=== PATIENT | female | born 1970 | race Caucasian/White ===

== ENCOUNTER → 2016-03-27 | Outpatient (CLI) | payer BC ==
[~2016-03-27] MED LIST: ALPR0.25 PO; BCPILLS PO; CHIA1POW PO; CPR500 PO; FLAXPOW2 PO; HYDR-5688 PO; MRLP17X PO; SPIR25TA PO
== END | disposition home or self-care (01) ==
LOC: C.PAPS 11:16
PROVIDERS: ATTEND Obstetrics & Gynecology
DX: Z01.419 Encounter for gynecological examination (general) (routine) without abnormal findings (principal)

== ENCOUNTER → 2016-07-09 | Outpatient (CLI) | payer BC ==
--- NOTE | 2016-07-09 15:07 | MAMMOGRAPHY REPORT ---
BILATERAL DIGITAL SCREENING MAMMOGRAM TOMOSYNTHESIS WITH CAD: 07/09/2016 CLINICAL HISTORY: Routine screening. Patient has no complaints. TECHNIQUE: Breast tomosynthesis in addition to standard 2D mammography was performed. Current study was also evaluated with a Computer Aided Detection (CAD) system. COMPARISON: Comparison is made to exams dated: 08/01/2015 mammogram, 07/26/2014 mammogram, 07/20/2013 m ammogram, 07/27/2012 ultrasound, 07/27/2012 mammogram, and 07/13/2012 mammogram - [facility]. BREAST COMPOSITION: There are scattered areas of fibroglandular density in both breasts. FINDINGS: No suspicious masses, calcifications, or areas of architectural distortion are noted in e ither breast. There has been no significant interval change compared to prior exams. Scattered bilat eral benign-appearing calcifications are not significantly changed. Small benign appearing mass in the right upper outer quadrant is stable. IMPRESSION: ACR BI-RADS CATEGORY 2: BENIGN There is no mammographic evidence of malignancy. A 1 year screening mammogram is recommended. The p atient will receive written notification of the results. Approximately 10% of breast cancers are not detected with mammography. A negative mammographic repor t should not delay biopsy if a clinically suggestive mass is present. Yahaira Law M.D. ah/:07/09/2016 07:37:10 Instrument Tech: Surinder Taylor RT(R)(M), [facility] letter sent: Normal 1/2 BI-RADS Code: ACR BI-RADS Category 2: Benign
== END | disposition home or self-care (01) ==
LOC: C.MAMM 07:13
DX: Z12.31 Encounter for screening mammogram for malignant neoplasm of breast (principal)

== ENCOUNTER 2016-11-02 18:12 | Inpatient (IN) | payer BC ==
[~2016-11-02] VITALS: Ht 157.5 cm; Wt 82.4 kg
[2016-11-02 00:14] VITALS: BP 145/82; PULSE 124; TEMP 36.8; O2SAT 95
[2016-11-02] MEDS ORDERED: KETOROLAC TROMETHAMINE 30 MG/ML VIAL IV STA (20:26)
[2016-11-02] MEDS ORDERED: SODIUM CHLORIDE 0.9% 1000ML 1,000 ML IV STA ×3 (20:26→21:29)
[2016-11-02] MEDS ORDERED: ONDANSETRON INJ 2 MG/ML 2 ML VIAL IV STA (20:26)
[2016-11-02] MEDS ORDERED: MoRPHine SULFATE 4 MG/ML 1 ML CARP\\VIAL IV PRN (20:30)
--- NOTE | 2016-11-02 20:32 | EMERGENCY ROOM VISIT NOTE ---
History Report prepared by Earline: Harry Gonzalez Under the Supervision of: Kt FelicianoO. First contact with patient: 20:19 Chief Complaint: KIDNEY STONE Stated Complaint: PAINFUL URINATION, L SIDE BACK PAIN History of Present Illness The patient is a 46 year old female with a history of a kidney stone and UTIs who presents to the Emergency Room with complaints of intermittent left-sided back pain that started yesterday. She adds that she has had burning with urination for the past 2 days. The patient says that her back pain has been worsening, and she was up all night with the pain. She states that she was started on Bactrim earlier today, and Pyridium last night. The patient says that the burning sensation has subsided a bit. She denies any vomiting, fevers, hematuria, rashes, vaginal bleeding, discharge, or leg pain. The patient states that she had a kidney stone on her right side, and had a stent put in. The patient's last CT scan was in 2000. She denies any chance of , and her last period was 2 weeks ago. Source of History: patient Onset: Yesterday Position: back (left) Symptom Intensity: kept her up all night Timing: worsening, other (intermittent) Associated Symptoms: + urinary symptoms (burning sensation, denies hematuria ), No fevers, No vomiting, No rash Note: Associated symptoms: Denies vaginal bleeding, discharge, leg pain. Review of Systems See HPI for pertinent positives & negatives. A total of 10 systems reviewed and were otherwise negative. Past Medical & Surgical Medical Problems: (1) HTN (hypertension) (2) Urinary tract infection Surgical Problems: (1) Kidney stone Family History Diabetes mellitus Heart disease Hypertension Kidney disease Social History Smoking Status: Never Smoker Marital Status: Housing Status: lives with family Occupation Status: employed Current/Historical Medications Scheduled Control Pills ( Control Pills), 1 TAB PO DAILY Oj Seed (Oj Seed), 2 TSP PO DAILY Flaxseed (Linseed) (Flax Seeds), 2 TSP PO DAILY Spironolactone (Aldactone), 25 MG PO BID Scheduled PRN Alprazolam (Xanax), 0.25 MG PO BID PRN for Anxiety Allergies Coded Allergies: Sulfa Drugs (Verified Allergy, Intermediate, RASH, 04/19/09) Physical Exam Vital Signs Date Time Temp Pulse Resp B/P (MAP) Pulse Ox O2 Delivery O2 Flow Rate FiO2 11/02/16 22:26 Room Air 11/02/16 21:46 120 11/02/16 20:37 129 22 136/92 94 Room Air 11/02/16 18:38 36.9 117 18 150/84 98 Room Air Physical Exam GENERAL: Patient is awake, alert, mildly anxious appearing and uncomfortable. EYES: The conjunctivae are clear. The pupils are round and reactive. EARS, NOSE, MOUTH AND THROAT: The nose is without any evidence of any deformity. Mucous membranes are moist tongue is midline NECK: The neck is nontender and supple. RESPIRATORY: Normal respiratory effort is noted there is no evidence of wheezing rhonchi or rales CARDIOVASCULAR: Regular rate and rhythm noted there no murmurs rubs or gallops normal S1 normal S2 GASTROINTESTINAL: The abdomen is mildly distended but soft. Tenderness in left lower quadrant but no guarding or rigidity. PELVIS: The Pelvis is stable. No tenderness to palpation is noted. BACK: Left CVA tenderness to percussion. No midline tenderness noted. Range of motion appeared intact. MUSCULOSKELETAL/EXTREMITIES: There is no evidence of gross deformity full range of motion is noted in the hips and shoulders SKIN: There is no obvious evidence of any rash. There are no petechiae, pallor or cyanosis noted. NEUROLOGIC: Patient is awake alert and oriented x3 strength is symmetric patellar reflexes are 2+ bilaterally Medical Decision & Procedures ER Provider Diagnostic Interpretation: CT results as stated below per my review and radiologist interpretation. ABDOMEN AND PELVIS CT WITHOUT CONTRAST CT DOSE: 492.44 mGy.cm HISTORY: left flank pain TECHNIQUE: Multiaxial CT images of the abdomen and pelvis were performed without contrast. A dose lowering technique was utilized adhering to the principles of ALARA. COMPARISON STUDY: None. FINDINGS: Subtle groundglass density within the medial aspect of the right lower lobe and base of the lingula. No pneumoperitoneum. No pneumatosis. No suspicious lytic or blastic osseous lesions. A 2.3 cm hypodense lesion within the right hepatic lobe. This is incompletely characterize on this noncontrast study. Fatty changes within the liver. The unenhanced spleen, adrenal glands, gallbladder, and pancreas are unremarkable. No renal, ureteral, or bladder stones. There is bladder wall thickening with adjacent fat stranding. There is also mild urothelial thickening within the left renal collecting system and left ureter with adjacent periureteral fat stranding. The right ureter is within normal limits. No retroperitoneal lymphadenopathy. The uterus and bilateral adnexa are unremarkable. Suboptimal evaluation for bowel pathology due to the lack of intravenous and oral contrast. However, there is no definite bowel wall thickening or obstruction. Normal appendix. IMPRESSION: 1. Abnormal bladder wall thickening as well as mild urothelial thickening of the left renal collecting system and left ureter with adjacent fat stranding. Findings are consistent with a cystitis and left-sided pyelitis/pyelonephritis. Recommend correlation with urinalysis. Of note, a recently passed left ureteral stone could also have a similar appearance. 2. No renal or ureteral stones. 3. Hepatic steatosis. There is also a 2.3 cm indeterminate hypodense lesion within the right hepatic lobe. 4. Subtle groundglass densities within the right lower lobe and lingula. This could represent mild inflammatory/infectious change. Electronically signed by: Gera Junior M.D. 11/02/2016 9:21 PM Dictated Date/Time: 11/02/2016 9:13 PM Laboratory Results 11/02/16 20:36 Red Blood Count 4.79, Mean Corpuscular Volume 88.1, Mean Corpuscular Hemoglobin 30.1, Mean Corpuscular Hemoglobin Concent 34.1, Mean Platelet Volume 9.1, Neutrophils (%) (Auto) 84.3, Lymphocytes (%) (Auto) 8.9, Monocytes (%) (Auto) 5.6, Eosinophils (%) (Auto) 0.7, Basophils (%) (Auto) 0.1, Neutrophils # (Auto) 20.21, Lymphocytes # (Auto) 2.13, Monocytes # (Auto) 1.35, Eosinophils # (Auto) 0.17, Basophils # (Auto) 0.02 11/02/16 20:36 Test 11/02/16 20:36 White Blood Count 23.97 K/uL (4.8-10.8) Red Blood Count 4.79 M/uL (4.2-5.4) Hemoglobin 14.4 g/dL (12.0-16.0) Hematocrit 42.2 % (37-47) Mean Corpuscular Volume 88.1 fL (80-100) Mean Corpuscular Hemoglobin 30.1 pg (25-34) Mean Corpuscular Hemoglobin Concent 34.1 g/dl (32-36) Platelet Count 350 K/uL (130-400) Mean Platelet Volume 9.1 fL (7.4-10.4) Neutrophils (%) (Auto) 84.3 % Lymphocytes (%) (Auto) 8.9 % Monocytes (%) (Auto) 5.6 % Eosinophils (%) (Auto) 0.7 % Basophils (%) (Auto) 0.1 % Neutrophils # (Auto) 20.21 K/uL (1.4-6.5) Lymphocytes # (Auto) 2.13 K/uL (1.2-3.4) Monocytes # (Auto) 1.35 K/uL (0.11-0.59) Eosinophils # (Auto) 0.17 K/uL (0-0.5) Basophils # (Auto) 0.02 K/uL (0-0.2) RDW Standard Deviation 41.3 fL (36.4-46.3) RDW Coefficient of Variation 12.8 % (11.5-14.5) Immature Granulocyte % (Auto) 0.4 % Immature Granulocyte # (Auto) 0.09 K/uL (0.00-0.02) Urine Color DK YELLOW Urine Appearance TURBID (CLEAR) Urine pH 5.5 (4.5-7.5) Urine Specific Isabella 1.012 (1.000-1.030) Urine Protein 2+ (NEG) Urine Glucose (UA) NEG (NEG) Urine Ketones NEG (NEG) Urine Occult Blood 3+ (NEG) Urine Nitrite POS (NEG) Urine Bilirubin NEG (NEG) Urine Urobilinogen NEG (NEG) Urine Leukocyte Esterase LARGE (NEG) Urine WBC (Auto) >30 /hpf (0-5) Urine RBC (Auto) 10-30 /hpf (0-4) Urine Hyaline Casts (Auto) 1-5 /lpf (0-5) Urine Epithelial Cells (Auto) 5-10 /lpf (0-5) Urine Bacteria (Auto) 2+ (NEG) Anion Gap 7.0 mmol/L (3-11) Est Creatinine Clear Calc Drug Dose 85.0 ml/min Estimated GFR () 98.0 Estimated GFR (Non- 84.5 BUN/Creatinine Ratio 11.9 (10-20) Calcium Level 9.5 mg/dl (8.5-10.1) Total Bilirubin 0.5 mg/dl (0.2-1) Direct Bilirubin 0.1 mg/dl (0-0.2) Aspartate Amino Transf (AST/SGOT) 10 U/L (15-37) Alanine Aminotransferase (ALT/SGPT) 21 U/L (12-78) Alkaline Phosphatase 101 U/L (45-117) Total Protein 7.8 gm/dl (6.4-8.2) Albumin 3.8 gm/dl (3.4-5.0) Lipase 124 U/L (73-393) Human Chorionic Gonadotropin, Qual NEG (NEG) Laboratory results per my review. Medications Administered Medications (Trade) Dose Ordered Sig/Srinivasan Route Start Time Stop Time Status Last Admin Dose Admin Ketorolac Tromethamine (Toradol Inj) 30 mg NOW STAT IV 11/02/16 20:26 11/02/16 20:28 DC 11/02/16 20:42 30 MG Sodium Chloride 1,000 ml @ 999 mls/hr Q1H1M STAT IV 11/02/16 20:26 11/02/16 21:26 DC 11/02/16 20:26 999 MLS/HR Ondansetron HCl (Zofran Inj) 4 mg NOW STAT IV 11/02/16 20:26 11/02/16 20:28 DC 11/02/16 20:42 4 MG Ceftriaxone Sodium (Rocephin Inj) 1 gm NOW STAT IV 11/02/16 21:13 11/02/16 21:14 DC 11/02/16 21:41 1 GM Sodium Chloride 1,000 ml @ 999 mls/hr Q1H1M STAT IV 11/02/16 21:29 11/02/16 22:29 DC 11/02/16 21:29 999 MLS/HR ED Course 2022: The patient was evaluated in room B2. A complete history and physical examination were performed. 2025: Ordered Zofran Inj 4 mg iV, NSS 1000 ml @ 999 mls/hr IV, Toradol Inj 30 mg IV. 2029: Ordered Morphine Sulfate Inj 4 mg IV PRN. 2112: Ordered Rocephin Inj 1 gm IV. 2128: I reevaluated the patient and she is resting. The patient verbally expressed understanding and agreement with the treatment plan. The patient will be evaluated for further treatment. Ordered NSS 1000 ml @ 250 mls/hr. 2136: I discussed the patient with Dr. Mata - tilting head band sawyer [facility]. He will evaluate the patient for further treatment. Medical Decision Differential diagnosis: Etiologies such as musculoskeletal, disc herniation, fracture, aortic disease, metastatic disease, cord compression, discitis, infection, renal colic, gastrointestinal, acute exacerbation of chronic back pain, sciatica, cauda equina, as well as others were entertained. Nursing notes reviewed. The patient is a 46-year-old female who presented to emergency department for evaluation of left-sided abdominal pain. The patient has a history of kidney stone in the past. She thought this could be consistent with a kidney stone but also noted dysuria and frequency. She was started on Bactrim as an outpatient but symptoms have not improved. The patient was found have signs of elevated white blood cell count as well as signs of urinary tract infection on urinalysis. The patient was given IV fluids IV pain medicine and IV antiemetics. She was also treated with IV antibiotics. I reviewed the patient's most recent urine culture. It appears that she had a gram-negative Escherichia coli which was resistant to sulfa. This was also resistant to quinolones. Even though this was a urine from 2007 the patient may still have a similar antibiotic gram if this is an Escherichia coli urinary tract infection. For this reason she was given IV Rocephin. You may also explain the patient's symptoms did not improve despite being started on Bactrim. I discussed the patient's laboratory and radiographic studies with her. I also discussed her case with the on-call [facility] hospitalist group. They've agreed to evaluate the patient in the emergency department for further management and disposition. Medication Reconcilliation Current Medication List: was personally reviewed by me No medications on list. Blood Pressure Screening Patient's blood pressure: Elevated blood pressure Blood pressure disposition: Elevated BP felt to be situational Consults Time Called: 2132 Consulting Physician: Dr. Mata - tilting head band sawyer [facility] Returned Call: 2136 I discussed the patient with Dr. Adolfo mason tilting head band sawyer [facility]. He will evaluate the patient for further treatment. Impression Primary Impression: Pyelonephritis Additional Impressions: Elevated WBC count Abdominal pain Scribe Attestation The scribe's documentation has been prepared under my direction and personally reviewed by me in its entirety. I confirm that the note above accurately reflects all work, treatment, procedures, and medical decision making performed by me. Departure Information Dispostion Being Evaluated By Hospitalist Referrals Kwame Oliver Jr,D.O. (PCP) Patient Instructions My [facility] Problem Qualifiers Additional Impressions: Elevated WBC count Leukocytosis type: unspecified Qualified Codes: D72.829 - Elevated white blood cell count, unspecified Abdominal pain Abdominal location: left lower quadrant Qualified Codes: R10.32 - Left lower quadrant pain
[2016-11-02 20:48] LABS: HEMATOCRIT 42.2 % (37-47); MEAN CELL VOLUME 88.1 fL (80-100); MEAN CORPUSCULAR HEMOGLOBIN 30.1 pg (25-34); MEAN CORPUSCULAR HGB CONC 34.1 g/dl (32-36); MEAN PLATELET VOLUME 9.1 fL (7.4-10.4); PLATELET COUNT 350 K/uL (130-400); RED BLOOD COUNT 4.79 M/uL (4.2-5.4); WHITE BLOOD COUNT 23.97 K/uL (4.8-10.8)
[2016-11-02 21:02] LABS: URINE APPEARANCE TURBID (CLEAR); URINE BILIRUBIN NEG (NEG); URINE COLOR DK YELLOW; URINE NITRITE POS (NEG); URINE PH 5.5 (4.5-7.5); URINE SPECIFIC GRAVITY 1.012 (1.000-1.030); UROBILINOGEN NEG (NEG)
[2016-11-02 21:08] LABS: PREG INTERNAL NEGATIVE QC NEG CLEAR BACKGROUND; PREG INTERNAL POSITIVE QC POS CONTROL LINE
[2016-11-02 21:09] LABS: BASO % 0.1 %; BASO ABS # 0.02 K/uL (0-0.2); BUN/CREATININE RATIO 11.9 (10-20); CALCIUM 9.5 mg/dl (8.5-10.1); COMPLETE YES; CREATININE 0.84 mg/dl (0.60-1.20); EOS % 0.7 %; IG% 0.4 %; LYMPH % 8.9 %; LYMPH ABS # 2.13 K/uL (1.2-3.4); MANUAL MICROSCOPIC REQUIRED? NO; MONO % 5.6 %; NEUT % 84.3 %; POTASSIUM 3.9 mmol/L (3.5-5.1); REVIEW REQ? NO
[2016-11-02] MEDS ORDERED: CEFTRIAXONE SOD INJ 1 GM ADDVIAL IV STA (21:13)
--- NOTE | 2016-11-02 21:23 | DIAGNOSTIC IMAGING REPORT ---
ABDOMEN AND PELVIS CT WITHOUT CONTRAST CT DOSE: 492.44 mGy.cm HISTORY: left flank pain TECHNIQUE: Multiaxial CT images of the abdomen and pelvis were performed without contrast. A dose lowering technique was utilized adhering to the principles of ALARA. COMPARISON STUDY: None. FINDINGS: Subtle groundglass density within the medial aspect of the right lower lobe and base of the lingula. No pneumoperitoneum. No pneumatosis. No suspicious lytic or blastic osseous lesions. A 2.3 cm hypodense lesion within the right hepatic lobe. This is incompletely characterize on this noncontrast study. Fatty changes within the liver. The unenhanced spleen, adrenal glands, gallbladder, and pancreas are unremarkable. No renal, ureteral, or bladder stones. There is bladder wall thickening with adjacent fat stranding. There is also mild urothelial thickening within the left renal collecting system and left ureter with adjacent periureteral fat stranding. The right ureter is within normal limits. No retroperitoneal lymphadenopathy. The uterus and bilateral adnexa are unremarkable. Suboptimal evaluation for bowel pathology due to the lack of intravenous and oral contrast. However, there is no definite bowel wall thickening or obstruction. Normal appendix. IMPRESSION: 1. Abnormal bladder wall thickening as well as mild urothelial thickening of the left renal collecting system and left ureter with adjacent fat stranding. Findings are consistent with a cystitis and left-sided pyelitis/pyelonephritis. Recommend correlation with urinalysis. Of note, a recently passed left ureteral stone could also have a similar appearance. 2. No renal or ureteral stones. 3. Hepatic steatosis. There is also a 2.3 cm indeterminate hypodense lesion within the right hepatic lobe. 4. Subtle groundglass densities within the right lower lobe and lingula. This could represent mild inflammatory/infectious change. Electronically signed by: Gera Junior M.D. 11/02/2016 9:21 PM Dictated Date/Time: 11/02/2016 9:13 PM
[2016-11-02] MEDS ORDERED: SPIR25TA PO (22:11)
[2016-11-02] MEDS ORDERED: BCPILLS PO (22:11)
[2016-11-02] MEDS ORDERED: ALPR0.25 PO (22:12)
[2016-11-02] MEDS ORDERED: FLAXPOW2 PO (22:14)
[2016-11-02] MEDS ORDERED: CHIA1POW PO (22:14)
[2016-11-02 22:26] VITALS: Ht 157.5 cm; Wt 82.4 kg
[2016-11-02] MEDS ORDERED: ACETAMINOPHEN 325 MG TAB PO PRN (23:00)
[2016-11-02] MEDS ORDERED: ONDANSETRON INJ 2 MG/ML 2 ML VIAL IV PRN (23:00)
[2016-11-02] MEDS ORDERED: MAGNESIUM HYDROXIDE SUSP 30 ML UDC PO PRN (23:00)
[2016-11-02] MEDS ORDERED: ALUMINUM/MAGNESIUM/SIMETH (MAALOX MAX) 30 ML UDC PO PRN (23:00)
[2016-11-02] MEDS ORDERED: POLYETHYLENE (MIRALAX) 17 GM PACK PO PRN (23:00)
--- NOTE | 2016-11-02 23:06 | History and Physical ---
History & Physical Date & Time of Service: Nov 02, 2016 at 22:52 Chief Complaint: Painful Urination, L Side Back Pain Primary Care Physician: Kwame Oliver Jr, D.O. History of Present Illness Source: patient The patient presents with "bladder burning" for the past 2-3 days. She also complains of left mid back pain. Kept her awake all night. Advil did help. She describes it as an aching pain 8/10, but now it has improved to 1/10. She felt the pain radiated down into the lower back. She continues to have some dysuria. Took 3 doses of Pyridium prior to arrival which did help. She was prescribed Bactrim yesterday at urgent care but has not had any relief yet. Went to work this morning and went to [employer] this afternoon symptom free. Later in the day she felt that the pain was coming back and feeling much worse than previous. Notes history of renal stone on the right side previously, and she had ureteroscopy and stenting in 2000. The pain now was reminiscent of that so she came to the ED for further evaluation. She notes a history of urethral dilatation as a child. She states otherwise, she has only 1 other UTI > 10 years ago. She denies fevers but feels hot. No chills or nightsweats. Appetite has been slightly diminished. She denies nausea, vomiting, diarrhea or constipation. She states that she has been fairly diligent at pushing PO fluids. The patient denies any chest pain, shortness of breath, pleuritic pain. She denies any calf pain or swelling. She has not had recent immobilization or travel. 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) Immunizations History of Influenza Vaccine: Unknown History of Tetanus Vaccine?: Unknown History of Pneumococcal: No History of Hepatitis B Vaccine: Unknown Multi-Drug Resistant Organisms History of MDRO: No Allergies Coded Allergies: Sulfa Drugs (Verified Allergy, Intermediate, RASH, 2/5/10) Home Medications Scheduled Control Pills ( Control Pills), 1 TAB PO DAILY Oj Seed (Oj Seed), 2 TSP PO DAILY Flaxseed (Linseed) (Flax Seeds), 2 TSP PO DAILY Spironolactone (Aldactone), 25 MG PO BID Scheduled PRN Alprazolam (Xanax), 0.25 MG PO BID PRN for Anxiety Review of Systems A 10 point review of systems was negative unless stated above. Physical Exam Vital Signs Date Time Temp Pulse Resp B/P (MAP) Pulse Ox O2 Delivery O2 Flow Rate FiO2 11/02/16 22:26 Room Air 11/02/16 21:46 120 11/02/16 20:37 129 22 136/92 94 Room Air 11/02/16 18:38 36.9 117 18 150/84 98 Room Air General Appearance: WD/WN, no apparent distress Head: normocephalic, atraumatic Eyes: normal inspection, EOMI ENT: hearing grossly normal, pharynx normal Neck: supple, no adenopathy, no JVD Respiratory/Chest: chest non-tender, no respiratory distress, no accessory muscle use, + pertinent finding (mild crackles at right base) Cardiovascular: regular rate, rhythm, no gallop, no murmur, + tachycardia Abdomen/GI: normal bowel sounds, non tender, soft Back: no muscle spasm, + left CVA tenderness Extremities/Musculoskelatal: no calf tenderness, no pedal edema Neurologic/Psych: alert, normal mood/affect, oriented x 3 Skin: normal color, warm/dry, no rash Lymphatic: no adenopathy Diagnostics Laboratory Results Results Past 24 Hours Test 11/02/16 20:36 Range/Units White Blood Count 23.97 4.8-10.8 K/uL Red Blood Count 4.79 4.2-5.4 M/uL Hemoglobin 14.4 12.0-16.0 g/dL Hematocrit 42.2 37-47 % Mean Corpuscular Volume 88.1 80-100 fL Mean Corpuscular Hemoglobin 30.1 25-34 pg Mean Corpuscular Hemoglobin Concent 34.1 32-36 g/dl Platelet Count 350 130-400 K/uL Mean Platelet Volume 9.1 7.4-10.4 fL Neutrophils (%) (Auto) 84.3 % Lymphocytes (%) (Auto) 8.9 % Monocytes (%) (Auto) 5.6 % Eosinophils (%) (Auto) 0.7 % Basophils (%) (Auto) 0.1 % Neutrophils # (Auto) 20.21 1.4-6.5 K/uL Lymphocytes # (Auto) 2.13 1.2-3.4 K/uL Monocytes # (Auto) 1.35 0.11-0.59 K/uL Eosinophils # (Auto) 0.17 0-0.5 K/uL Basophils # (Auto) 0.02 0-0.2 K/uL RDW Standard Deviation 41.3 36.4-46.3 fL RDW Coefficient of Variation 12.8 11.5-14.5 % Immature Granulocyte % (Auto) 0.4 % Immature Granulocyte # (Auto) 0.09 0.00-0.02 K/uL Urine Color DK YELLOW Urine Appearance TURBID CLEAR Urine pH 5.5 4.5-7.5 Urine Specific [place] 1.012 1.000-1.030 Urine Protein 2+ NEG Urine Glucose (UA) NEG NEG Urine Ketones NEG NEG Urine Occult Blood 3+ NEG Urine Nitrite POS NEG Urine Bilirubin NEG NEG Urine Urobilinogen NEG NEG Urine Leukocyte Esterase LARGE NEG Urine WBC (Auto) >30 0-5 /hpf Urine RBC (Auto) 10-30 0-4 /hpf Urine Hyaline Casts (Auto) 1-5 0-5 /lpf Urine Epithelial Cells (Auto) 5-10 0-5 /lpf Urine Bacteria (Auto) 2+ NEG Sodium Level 136 136-145 mmol/L Potassium Level 3.9 3.5-5.1 mmol/L Chloride Level 102 98-107 mmol/L Carbon Dioxide Level 27 21-32 mmol/L Anion Gap 7.0 3-11 mmol/L Blood Urea Nitrogen 10 7-18 mg/dl Creatinine 0.84 0.60-1.20 mg/dl Est Creatinine Clear Calc Drug Dose 85.0 ml/min Estimated GFR () 98.0 Estimated GFR (Non- 84.5 BUN/Creatinine Ratio 11.9 10-20 Random Glucose 107 70-99 mg/dl Calcium Level 9.5 8.5-10.1 mg/dl Total Bilirubin 0.5 0.2-1 mg/dl Direct Bilirubin 0.1 0-0.2 mg/dl Aspartate Amino Transf (AST/SGOT) 10 15-37 U/L Alanine Aminotransferase (ALT/SGPT) 21 12-78 U/L Alkaline Phosphatase 101 45-117 U/L Total Protein 7.8 6.4-8.2 gm/dl Albumin 3.8 3.4-5.0 gm/dl Lipase 124 73-393 U/L Human Chorionic Gonadotropin, Qual NEG NEG Microbiology Results 11/02/16 Urine Culture, Received Pending Diagnostic Radiology [~ rep ct add3]] ABDOMEN AND PELVIS CT WITHOUT CONTRAST CT DOSE: 492.44 mGy.cm HISTORY: left flank pain TECHNIQUE: Multiaxial CT images of the abdomen and pelvis were performed without contrast. A dose lowering technique was utilized adhering to the principles of ALARA. COMPARISON STUDY: None. FINDINGS: Subtle groundglass density within the medial aspect of the right lower lobe and base of the lingula. No pneumoperitoneum. No pneumatosis. No suspicious lytic or blastic osseous lesions. A 2.3 cm hypodense lesion within the right hepatic lobe. This is incompletely characterize on this noncontrast study. Fatty changes within the liver. The unenhanced spleen, adrenal glands, gallbladder, and pancreas are unremarkable. No renal, ureteral, or bladder stones. There is bladder wall thickening with adjacent fat stranding. There is also mild urothelial thickening within the left renal collecting system and left ureter with adjacent periureteral fat stranding. The right ureter is within normal limits. No retroperitoneal lymphadenopathy. The uterus and bilateral adnexa are unremarkable. Suboptimal evaluation for bowel pathology due to the lack of intravenous and oral contrast. However, there is no definite bowel wall thickening or obstruction. Normal appendix. IMPRESSION: 1. Abnormal bladder wall thickening as well as mild urothelial thickening of the left renal collecting system and left ureter with adjacent fat stranding. Findings are consistent with a cystitis and left-sided pyelitis/pyelonephritis. Recommend correlation with urinalysis. Of note, a recently passed left ureteral stone could also have a similar appearance. 2. No renal or ureteral stones. 3. Hepatic steatosis. There is also a 2.3 cm indeterminate hypodense lesion within the right hepatic lobe. 4. Subtle groundglass densities within the right lower lobe and lingula. This could represent mild inflammatory/infectious change. Electronically signed by: Gera Junior M.D. 11/02/2016 9:21 PM Dictated Date/Time: 11/02/2016 9:13 PM The status of this report is Signed. Draft = Not yet reviewed or approved by Radiologist. Signed = Reviewed and approved by Radiologist. Impression Assessment and Plan 46 year old female presenting with dysuria and left back pain. UA in conjunction with CT is suggestive of cystitis/left sided pyelonephritis At the time of admission, she has gotten 2 L of fluids and is currently having her third litre running wide open and remains tacchycardic. Our plan for her is as follows: Cystitis/Left Pyelonephritis - Rocephin 1 g IV daily - IV rehydration Tachycardia - After 2 L NSS and 3rd Litre running now - Unusual given that patient has been stating reasonable hydration status over the past several days and appears hydrated - Will order EKG to rule-out SVT - Will order CT for PE (patient does have risk factor of being on OCP Hepatic Lobe Lesion - Incidental finding on CT - Will require follow-up characterization, which is non-urgent Hypertension - Continue Spironolactone DVT Prophylaxis - SCD - NADER - Lovenox 40 mg qAM Disposition - Med/Surg - Lives independently, PT and OT needs not anticipated at this time Attending Addendum: I have physically seen and examined this patient, have supervised the medical residents activities, and agree with the H&P as noted above with the following exceptions as noted. The patient denies chest pain, palpitations, shortness of breath, cough, lower extremity swelling, vision change, hearing change, sore throat, fevers, chills, sweats, weight change, fatigue, nausea, vomiting, blood in urine or stool, lightheadedness, dizziness, headache, memory loss, rash, abnormal bruising or bleeding, imbalance, focal or generalized weakness, numbness or tingling in arms or legs, generalized arthralgias or myalgias, night sweats, or allergy symptoms. The review of systems is otherwise negative other than for that already noted above, and at least 10 systems have been reviewed. The patient is awake, well-developed and adequately nourished, alert and oriented 3, normocephalic and atraumatic, lying in bed and in no acute distress. HEENT--PERRL, EOMI, mucous membranes and oropharynx dry. Neck--supple, no JVD or bruits, thyroid normal, trachea midline, no adenopathy. Heart--normal S1 and S2, no extra beats, no murmurs, rubs or gallops. Lungs--clear bilaterally with good air movement, no respiratory distress, no accessory muscle use. Abdomen--normal bowel sounds and soft, nontender and nondistended, no hernias or masses, no organomegaly. No pain post medications Extremities--no cyanosis, clubbing or edema. There are good distal pulses b/l. Dermatologic--normal skin turgor, normal color, warm and dry, no abnormal lymph nodes, no rash. Neurologic--cranial nerves II through XII grossly intact. Rheumatologic--normal range of motion, nontender, muscles and joints. Psychiatric--normal affect. Assessment and Plan: 1. Cystitis/left sided pyelonephritis--ceftriaxone 1 g IV daily, IV fluid rehydration, follow urine culture and sensitivity results. 2. Tachycardia--she has had persistent increased heart rate in the 125 to 130 range in spite of aggressive IV fluid rehydration up to 3 L at this time. We'll order a CT angiography assess her possible pulmonary embolism. If the CT is negative, continue IV fluid rehydration. 3. Nonspecific right hepatic lobe lesion 2.3 cm--she should have a follow-up MRI to further assess. Level of Care Med/Surg Advanced Directives Existing Advance Directive: No Existing Living Will: No Existing Power of Container Finisher: No Resuscitation Status FULL RESUSCITATION VTE Prophylaxis VTE Risk Assessment Done? Y/N: Yes Risk Level: Moderate Given or contraindicated: Enoxaparin (Lovenox)SQ Social Service Consult None Apply
[2016-11-02] MEDS ORDERED: OPTIRAY 320 IV PRN (23:30)
[2016-11-03] MEDS: AZITHROMYCIN IV 500 MG in DEXTROSE 5% 250ML 250 ML IV SCH ×2 (00:41→23:30)
[2016-11-03] MEDS: NSS + 20MEQ KCL 1000ML 1,000 ML IV SCH ×4 (00:41→23:30)
[2016-11-03 02:19] VITALS: PULSE 102
[2016-11-03 07:11] LABS: PROTHROMBIN TIME (PATIENT) 10.3 SECONDS (9.0-12.0)
[2016-11-03 07:19] LABS: BASO % 0.2 %; BASO ABS # 0.02 K/uL (0-0.2); COMPLETE YES; EOS % 2.5 %; HEMATOCRIT 34.1 % (37-47); IG% 0.2 %; LYMPH % 19.4 %; LYMPH ABS # 2.14 K/uL (1.2-3.4); MEAN CELL VOLUME 88.3 fL (80-100); MEAN CORPUSCULAR HEMOGLOBIN 30.6 pg (25-34); MEAN CORPUSCULAR HGB CONC 34.6 g/dl (32-36); MEAN PLATELET VOLUME 8.9 fL (7.4-10.4); MONO % 9.5 %; NEUT % 68.2 %; PLATELET COUNT 235 K/uL (130-400); RED BLOOD COUNT 3.86 M/uL (4.2-5.4); WHITE BLOOD COUNT 11.03 K/uL (4.8-10.8)
[2016-11-03 07:20] VITALS: BP 132/81; PULSE 97; TEMP 36.5; O2SAT 95
--- NOTE | 2016-11-03 07:26 | DIAGNOSTIC IMAGING REPORT ---
CT ANGIOGRAM OF THE CHEST CLINICAL HISTORY: Tachycardia. COMPARISON STUDY: No priors. TECHNIQUE: Following the IV administration of 75 cc of Optiray 320, CT angiogram of the chest was performed from the upper abdomen to the thoracic inlet utilizing the pulmonary embolus protocol. Images are reviewed in the axial, sagittal, and coronal planes. 3-D MIPS images are created and assessed. IV contrast was administered without complication. A dose lowering technique was utilized adhering to the principles of ALARA. CT DOSE: 397.44 mGy.cm FINDINGS: Thyroid: Imaged portions of the thyroid gland are normal in size and attenuation. Subcentimeter thyroid nodules are noted. Thoracic aorta: The thoracic aorta is normal in caliber and demonstrates bovine variant arch anatomy. No dissection is seen. Pulmonary vasculature: The pulmonary trunk is normal in caliber. There are no filling defects identified in main, lobar, or segmental pulmonary branches to suggest pulmonary embolus. Heart: The heart is normal in size and configuration, and without pericardial effusion. Lungs and pleural spaces: The lungs and pleural spaces are clear. Mediastinum: There is no mediastinal lymphadenopathy. [place]: Clear. Axillae: There is no axillary lymphadenopathy. Upper abdomen: The liver is steatotic. There is a 2.3 cm indeterminant low-attenuation lesion in segment VII seen on image #44. Skeletal structures: No lytic or blastic bony lesions are seen. IMPRESSION: 1. There is no evidence of pulmonary embolus in the main, lobar, or segmental pulmonary arteries. 2. The lungs are clear. 3. Hepatic steatosis. 4. There is an indeterminant 2.3 cm low-attenuation lesion in the right hepatic lobe. In the absence of a cancer history this likely represents a benign hemangioma. This could be confirmed with a nonemergent/outpatient contrast-enhanced MRI of the liver if clinically warranted. 5. Subcentimeter thyroid nodules are identified. Follow-up with a nonemergent thyroid ultrasound is recommended. Electronically signed by: Ismael Aguirre M.D. 11/03/2016 7:25 AM Dictated Date/Time: 11/03/2016 7:20 AM
[2016-11-03 07:39] LABS: BUN/CREATININE RATIO 9.1 (10-20); CALCIUM 7.7 mg/dl (8.5-10.1); CREATININE 0.65 mg/dl (0.60-1.20); POTASSIUM 3.9 mmol/L (3.5-5.1)
[2016-11-03 08:00] VITALS: O2SAT 95
[2016-11-03] MEDS: SPIRONOLACTONE 25 MG TAB PO SCH ×2 (08:27→16:10)
[2016-11-03] MEDS: ENOXAPARIN 40 MG/0.4 ML SYR SQ SCH (08:28)
--- NOTE | 2016-11-03 08:48 | Hospitalist Progress Note ---
Hospitalist Progress Note Date of Service Nov 03, 2016. (Katharina Aragon PA-C) Subjective Pt evaluation today including: conversation w/ patient, conversation w/ family , physical exam, chart review, lab review, review of studies Pain: None PO Intake: Good Voiding: no voiding problems The patient was seen and examined this morning. Pt reports feeling much better. She is still having some left sided flank pain that waxes and wanes, rated 4/ 10. She has only taken toradol x 1 last evening, and has not required any other pain meds. She denies any abdominal pain, nausea, or vomiting. Her and sister are present, all their questions and concerns were answered. Constitutional: No fever, No chills, No sweats Eyes: No redness, No diplopia ENT: No nasal symptoms, No trouble swallowing Respiratory: No cough, No shortness of breath Cardiovascular: No chest pain, No palpitations Abdomen: No pain, No nausea, No vomiting, No diarrhea, No constipation Musculoskeletal: No joint pain, No muscle pain Skin: No rash, No itch (Katharina Aragon PA-C) Objective Vital Signs Date Time Temp Pulse Resp B/P (MAP) Pulse Ox O2 Delivery O2 Flow Rate FiO2 11/03/16 07:20 36.5 97 20 132/81 (98) 95 Room Air 11/03/16 02:19 102 11/02/16 23:41 115 22 138/81 99 11/02/16 22:30 124 26 145/89 99 Room Air 11/02/16 22:26 Room Air 11/02/16 21:46 120 11/02/16 20:37 129 22 136/92 94 Room Air 11/02/16 18:38 36.9 117 18 150/84 98 Room Air (Katharina Aragon PA-C) Physical Exam General Appearance: WD/WN, no apparent distress, + obese Eyes: PERRL, EOMI ENT: hearing grossly normal, pharynx normal Neck: supple, no JVD Respiratory/Chest: lungs clear, no respiratory distress, no accessory muscle use Cardiovascular: regular rate, rhythm, no murmur Abdomen: normal bowel sounds, non tender, soft Extremities: non-tender, no pedal edema, no calf tenderness Neurologic/Psychiatric: alert, normal mood/affect, oriented x 3 Skin: normal color, warm/dry (Katharina Aragon, HERON) Laboratory Results Last 24 Hours Test 11/02/16 20:36 11/03/16 06:35 White Blood Count 23.97 K/uL 11.03 K/uL Red Blood Count 4.79 M/uL 3.86 M/uL Hemoglobin 14.4 g/dL 11.8 g/dL Hematocrit 42.2 % 34.1 % Mean Corpuscular Volume 88.1 fL 88.3 fL Mean Corpuscular Hemoglobin 30.1 pg 30.6 pg Mean Corpuscular Hemoglobin Concent 34.1 g/dl 34.6 g/dl Platelet Count 350 K/uL 235 K/uL Mean Platelet Volume 9.1 fL 8.9 fL Neutrophils (%) (Auto) 84.3 % 68.2 % Lymphocytes (%) (Auto) 8.9 % 19.4 % Monocytes (%) (Auto) 5.6 % 9.5 % Eosinophils (%) (Auto) 0.7 % 2.5 % Basophils (%) (Auto) 0.1 % 0.2 % Neutrophils # (Auto) 20.21 K/uL 7.52 K/uL Lymphocytes # (Auto) 2.13 K/uL 2.14 K/uL Monocytes # (Auto) 1.35 K/uL 1.05 K/uL Eosinophils # (Auto) 0.17 K/uL 0.28 K/uL Basophils # (Auto) 0.02 K/uL 0.02 K/uL RDW Standard Deviation 41.3 fL 41.5 fL RDW Coefficient of Variation 12.8 % 12.9 % Immature Granulocyte % (Auto) 0.4 % 0.2 % Immature Granulocyte # (Auto) 0.09 K/uL 0.02 K/uL Urine Color DK YELLOW Urine Appearance TURBID Urine pH 5.5 Urine Specific [place] 1.012 Urine Protein 2+ Urine Glucose (UA) NEG Urine Ketones NEG Urine Occult Blood 3+ Urine Nitrite POS Urine Bilirubin NEG Urine Urobilinogen NEG Urine Leukocyte Esterase LARGE Urine WBC (Auto) >30 /hpf Urine RBC (Auto) 10-30 /hpf Urine Hyaline Casts (Auto) 1-5 /lpf Urine Epithelial Cells (Auto) 5-10 /lpf Urine Bacteria (Auto) 2+ Sodium Level 136 mmol/L 141 mmol/L Potassium Level 3.9 mmol/L 3.9 mmol/L Chloride Level 102 mmol/L 111 mmol/L Carbon Dioxide Level 27 mmol/L 24 mmol/L Anion Gap 7.0 mmol/L 6.0 mmol/L Blood Urea Nitrogen 10 mg/dl 6 mg/dl Creatinine 0.84 mg/dl 0.65 mg/dl Est Creatinine Clear Calc Drug Dose 85.0 ml/min 109.9 ml/min Estimated GFR () 98.0 125.1 Estimated GFR (Non- 84.5 108.0 BUN/Creatinine Ratio 11.9 9.1 Random Glucose 107 mg/dl 84 mg/dl Calcium Level 9.5 mg/dl 7.7 mg/dl Total Bilirubin 0.5 mg/dl Direct Bilirubin 0.1 mg/dl Aspartate Amino Transf (AST/SGOT) 10 U/L Alanine Aminotransferase (ALT/SGPT) 21 U/L Alkaline Phosphatase 101 U/L Total Protein 7.8 gm/dl Albumin 3.8 gm/dl Lipase 124 U/L Human Chorionic Gonadotropin, Qual NEG Prothrombin Time 10.3 SECONDS Prothromb Time International Ratio 1.0 (Katharina Aragon, PA-C) Assessment and Plan 46 year old female presenting with dysuria and left back pain. UA in conjunction with CT is suggestive of cystitis/left sided pyelonephritis Cystitis/Left Pyelonephritis - Rocephin 1 g IV daily- leukocytosis is improving from 24 down to 11.8 - IV rehydration - Await UCx sensitivities Tachycardia - Got 3 L NSS overnight and is on maintenance fluids at this time. - Pt was tachycardic this morning, but improved during my examination late this morning to being regular with HR around 80. - EKG appears WNL - CTA negative for PE Hepatic Lobe Lesion - Incidental finding on CT - Will require follow-up characterization, which is non-urgent Hypertension - Continue Spironolactone DVT Prophylaxis: SCD, NADER, Lovenox 40 mg qAM Disposition: Lives independently, PT and OT needs not anticipated at this time , likely discharge tomorrow pending cx (Katharina Aragon, PA-C) I agree with PA assessment and plan and have seen and examined pt myself Resting comfortably in bed VSS Labs reviewed and leukocytosis improved Imaging reviewed Pt presents with pyelonephritis Cont with rocephin at this time Likely DC in next 24 hrs (Ez Saravia D.O.)
[2016-11-03 14:58] VITALS: BP 113/75; PULSE 92; TEMP 36.5; O2SAT 98
[2016-11-03] MEDS ORDERED: CEFTRIAXONE SOD INJ 1 GM in DEXTROSE 5% ADD-VANTAGE 50ML 50 ML IV SCH (21:00)
[2016-11-03] MEDS ORDERED: KETOROLAC TROMETHAMINE 30 MG/ML VIAL IV STA (21:50)
[2016-11-03 22:54] VITALS: BP 104/64; PULSE 80; TEMP 36.6; O2SAT 98
[2016-11-04 07:21] VITALS: BP 134/83; PULSE 88; TEMP 36.8; O2SAT 96
[2016-11-04] MEDS ORDERED: CPR500 PO ×2 (08:14→08:22)
--- NOTE | 2016-11-04 08:21 | Discharge Instructions ---
Discharge Instructions Date of Service Nov 04, 2016. Admission Reason for Admission: Urinary Tract Infection Discharge Discharge Diagnosis / Problem: Pyelonephrosis, e.coli Urinary tract infection Discharge Goals Goal(s): Decrease discomfort, Improve function, Increase independence, Improve disease control Activity Recommendations Activity Limitations: resume your previous activity Lifting Limitations: gradually increase as tolerated Exercise/Sports Limitations: none, gradually increase as tolerated May Resume Sexual Activity: when tolerated Shower/Bathe: no limitations Driving or Machine Use: no limitations . Instructions / Follow-Up Instructions / Follow-Up You were admitted to [facility] with severe left sided flank pain and diagnosed with pyelonephritis and a urinary tract infection where your cultures grew out e. coli. During your stay here you were treated with intravenous antibiotics, pain control and fluids. Your symptoms resolved. Imaging studies which were completed include CT of the abdomen/pelvis, and were abnormal showing pyelonephritis. Medications: Continue taking antibiotic- ciprofloxacin 500 mg twice daily for 8 more days to complete a 10 day course. You have been given Sarver 5/325 for severe pain. Use this every 6 hours as needed. If your pain does not resolve or worsens, call your PCP or come to the ER. Use mirilax to help keep your bowels regular, especially while using Sarver for pain, as this is a narcotic medication and can cause constipation. Eat a yogurt once daily to help proliferate good bacteria in the gut while taking an antibiotic. Follow up: Follow up with your Primary Care Provider within 1 week. Current Hospital Diet Patient's current hospital diet: Regular Diet Discharge Diet Recommended Diet: Regular Diet Pending Studies Studies pending at discharge: no Medical Emergencies . Who to Call and When: Medical Emergencies: If at any time you feel your situation is an emergency, please call 911 immediately. . Non-Emergent Contact Non-Emergency issues call your: Primary Care Provider, Marketing Content Specialist Call Non-Emergent contact if: you have a fever, temperature is above 100.5, your pain is not controlled, your pain is worsening, your pain is unusual for you, your pain is concerning you, you have any medication questions Call 911 or go directly to the ER if you experience chest pain, shortness of breath, abdominal pain, lightheadedness, dizziness or have other concerns regarding your health. . Past History Medical & Surgical History: (1) Pyelonephritis (2) Urinary tract infection (3) Elevated WBC count . "Provider Documentation" section prepared by Tonie Aragon. . VTE Core Measure Inpt VTE Proph given/why not?: Enoxaparin (Lovenox)SQ, T.E.D. Stockings, SCD's
[2016-11-04 08:23] LABS: BASO % 0.2 %; BASO ABS # 0.02 K/uL (0-0.2); COMPLETE YES; EOS % 6.4 %; HEMATOCRIT 38.3 % (37-47); IG% 0.1 %; LYMPH % 20.6 %; LYMPH ABS # 1.71 K/uL (1.2-3.4); MEAN CELL VOLUME 89.1 fL (80-100); MEAN CORPUSCULAR HEMOGLOBIN 29.1 pg (25-34); MEAN CORPUSCULAR HGB CONC 32.6 g/dl (32-36); MEAN PLATELET VOLUME 8.6 fL (7.4-10.4); MONO % 7.6 %; NEUT % 65.1 %; PLATELET COUNT 241 K/uL (130-400)
[2016-11-04] MEDS: SPIRONOLACTONE 25 MG TAB PO SCH (08:48)
[2016-11-04] MEDS: ENOXAPARIN 40 MG/0.4 ML SYR SQ SCH (08:49)
[2016-11-04] MEDS: NSS + 20MEQ KCL 1000ML 1,000 ML IV SCH (08:51)
[2016-11-04] MEDS ORDERED: HYDROCODONE/ACETAMOPHEN 5/325MG TAB PO PRN (09:15)
[2016-11-04] MEDS ORDERED: BISACODYL 10 MG SUPP PR STA (09:36)
[2016-11-04] MEDS ORDERED: HYDR-5688 PO (09:38)
[2016-11-04] MEDS ORDERED: MRLP17X PO (09:38)
[2016-11-04] MEDS ORDERED: CIPROFLOXACIN 500 MG TAB PO SCH (10:00)
[2016-11-04 10:39] VITALS: BP 134/83; PULSE 88; TEMP 36.8; O2SAT 96
--- NOTE | 2016-11-04 13:31 | Discharge Summary ---
Discharge Summary Date of Service Nov 04, 2016. (Katharina Aragon PA-C) Discharge Summary Admission Date: Nov 02, 2016 at 23:01 Discharge Date: Nov 04, 2016 Discharge Disposition: Home Principal Diagnosis: Pyelonephritis, E.coli UTI Problems/Secondary Diagnoses: HTN, Left pyelonephritis, e.coli UTI, obesity Immunizations: Have You Had Influenza Vaccine: Unknown History of Tetanus Vaccine?: Unknown History of Pneumococcal: No History of Hepatitis B Vaccine: Unknown Procedures: ABDOMEN AND PELVIS CT WITHOUT CONTRAST CT DOSE: 492.44 mGy.cm HISTORY: left flank pain TECHNIQUE: Multiaxial CT images of the abdomen and pelvis were performed without contrast. A dose lowering technique was utilized adhering to the principles of ALARA. COMPARISON STUDY: None. FINDINGS: Subtle groundglass density within the medial aspect of the right lower lobe and base of the lingula. No pneumoperitoneum. No pneumatosis. No suspicious lytic or blastic osseous lesions. A 2.3 cm hypodense lesion within the right hepatic lobe. This is incompletely characterize on this noncontrast study. Fatty changes within the liver. The unenhanced spleen, adrenal glands, gallbladder, and pancreas are unremarkable. No renal, ureteral, or bladder stones. There is bladder wall thickening with adjacent fat stranding. There is also mild urothelial thickening within the left renal collecting system and left ureter with adjacent periureteral fat stranding. The right ureter is within normal limits. No retroperitoneal lymphadenopathy. The uterus and bilateral adnexa are unremarkable. Suboptimal evaluation for bowel pathology due to the lack of intravenous and oral contrast. However, there is no definite bowel wall thickening or obstruction. Normal appendix. IMPRESSION: 1. Abnormal bladder wall thickening as well as mild urothelial thickening of the left renal collecting system and left ureter with adjacent fat stranding. Findings are consistent with a cystitis and left-sided pyelitis/pyelonephritis. Recommend correlation with urinalysis. Of note, a recently passed left ureteral stone could also have a similar appearance. 2. No renal or ureteral stones. 3. Hepatic steatosis. There is also a 2.3 cm indeterminate hypodense lesion within the right hepatic lobe. 4. Subtle groundglass densities within the right lower lobe and lingula. This could represent mild inflammatory/infectious change. Electronically signed by: Gera Junior M.D. 11/02/2016 9:21 PM Dictated Date/Time: 11/02/2016 9:13 PM The status of this report is Signed. CT ANGIOGRAM OF THE CHEST CLINICAL HISTORY: Tachycardia. COMPARISON STUDY: No priors. TECHNIQUE: Following the IV administration of 75 cc of Optiray 320, CT angiogram of the chest was performed from the upper abdomen to the thoracic inlet utilizing the pulmonary embolus protocol. Images are reviewed in the axial, sagittal, and coronal planes. 3-D MIPS images are created and assessed. IV contrast was administered without complication. A dose lowering technique was utilized adhering to the principles of ALARA. CT DOSE: 397.44 mGy.cm FINDINGS: Thyroid: Imaged portions of the thyroid gland are normal in size and attenuation. Subcentimeter thyroid nodules are noted. Thoracic aorta: The thoracic aorta is normal in caliber and demonstrates bovine variant arch anatomy. No dissection is seen. Pulmonary vasculature: The pulmonary trunk is normal in caliber. There are no filling defects identified in main, lobar, or segmental pulmonary branches to suggest pulmonary embolus. Heart: The heart is normal in size and configuration, and without pericardial effusion. Lungs and pleural spaces: The lungs and pleural spaces are clear. Mediastinum: There is no mediastinal lymphadenopathy. Halima: Clear. Axillae: There is no axillary lymphadenopathy. Upper abdomen: The liver is steatotic. There is a 2.3 cm indeterminant low-attenuation lesion in segment VII seen on image #44. Skeletal structures: No lytic or blastic bony lesions are seen. IMPRESSION: 1. There is no evidence of pulmonary embolus in the main, lobar, or segmental pulmonary arteries. 2. The lungs are clear. 3. Hepatic steatosis. 4. There is an indeterminant 2.3 cm low-attenuation lesion in the right hepatic lobe. In the absence of a cancer history this likely represents a benign hemangioma. This could be confirmed with a nonemergent/outpatient contrast-enhanced MRI of the liver if clinically warranted. 5. Subcentimeter thyroid nodules are identified. Follow-up with a nonemergent thyroid ultrasound is recommended. Electronically signed by: Ismael Aguirre M.D. 11/03/2016 7:25 AM Dictated Date/Time: 11/03/2016 7:20 AM The status of this report is Signed. Consultations: None (Filipowicz,Katharina G., PA-C) Medication Reconciliation New Medications: Ciprofloxacin (Ciprofloxacin HCl) 500 Mg Tab 500 MG PO BID for 8 Days, #15 TAB Hydrocodone/Acetaminophen 5MG/325MG ([place] 5MG/325MG) Tab 1 TABLET PO Q6 PRN for Pain for 3 Days, #18 TAB Ongoing Treatment Polyethylene (Miralax) 17 Gm Pow 17 GM PO DAILY PRN for Constipation for 30 Days, #30 DOSE Continued Medications: Alprazolam (Xanax) 0.25 Mg Tab 0.25 MG PO BID PRN for Anxiety, TAB Control Pills ( Control Pills) Tab 1 TAB PO DAILY, TAB Oj Seed (Oj Seed) 15,000 Mg/15 Gm Pow 2 TSP PO DAILY Flaxseed (Linseed) (Flax Seeds) 1 Pow Pow 2 TSP PO DAILY Spironolactone (Aldactone) 25 Mg Tab 25 MG PO BID Discharge Exam The patient was seen and examined this morning. Pt reports feeling well today. She is having a little bit of left flank pain, and needed some pain medication again last night. She still has not had a bowel movement, but is agreeable to dulcolax suppository, and took miralax this morning. Discussion was held regarding eating a yogurt daily while being on the antibiotic. All her questions and concerns were addressed. ROS: Constitutional: No fever, No chills, No sweats Eyes: No redness, No diplopia ENT: No nasal symptoms, No trouble swallowing Respiratory: No cough, No shortness of breath Cardiovascular: No chest pain, No palpitations Abdomen: No pain, No nausea, No vomiting, No diarrhea, No constipation Musculoskeletal: No joint pain, No muscle pain Skin: No rash, No itch PE: General Appearance: WD/WN, no apparent distress, + obese Eyes: PERRL, EOMI ENT: hearing grossly normal, pharynx normal Neck: supple, no JVD Respiratory/Chest: lungs clear, no respiratory distress, no accessory muscle use Cardiovascular: regular rate, rhythm, no murmur Abdomen: normal bowel sounds, non tender, soft Extremities: non-tender, no pedal edema, no calf tenderness Neurologic/Psychiatric: alert, normal mood/affect, oriented x 3 Skin: normal color, warm/dry (Katharina Aragon, PA-C) Hospital Course H&P per Etienne Mata MD. History of Present Illness Source: patient The patient presents with "bladder burning" for the past 2-3 days. She also complains of left mid back pain. Kept her awake all night. Advil did help. She describes it as an aching pain 8/10, but now it has improved to 1/10. She felt the pain radiated down into the lower back. She continues to have some dysuria. Took 3 doses of Pyridium prior to arrival which did help. She was prescribed Bactrim yesterday at urgent care but has not had any relief yet. Went to work this morning and went to [employer] this afternoon symptom free. Later in the day she felt that the pain was coming back and feeling much worse than previous. Notes history of renal stone on the right side previously, and she had ureteroscopy and stenting in 2000. The pain now was reminiscent of that so she came to the ED for further evaluation. She notes a history of urethral dilatation as a child. She states otherwise, she has only 1 other UTI > 10 years ago. She denies fevers but feels hot. No chills or nightsweats. Appetite has been slightly diminished. She denies nausea, vomiting, diarrhea or constipation. She states that she has been fairly diligent at pushing PO fluids. The patient denies any chest pain, shortness of breath, pleuritic pain. She denies any calf pain or swelling. She has not had recent immobilization or travel.46 year old female presenting with dysuria and left back pain. UA in conjunction with CT is suggestive of cystitis/left sided pyelonephritis Physical Exam Vital Signs Date Time Temp Pulse Resp B/P (MAP) Pulse Ox O2 Delivery O2 Flow Rate FiO2 11/02/16 22:26 Room Air 11/02/16 21:46 120 11/02/16 20:37 129 22 136/92 94 Room Air 11/02/16 18:38 36.9 117 18 150/84 98 Room Air General Appearance: WD/WN, no apparent distress Head: normocephalic, atraumatic Eyes: normal inspection, EOMI ENT: hearing grossly normal, pharynx normal Neck: supple, no adenopathy, no JVD Respiratory/Chest: chest non-tender, no respiratory distress, no accessory muscle use, + pertinent finding (mild crackles at right base) Cardiovascular: regular rate, rhythm, no gallop, no murmur, + tachycardia Abdomen/GI: normal bowel sounds, non tender, soft Back: no muscle spasm, + left CVA tenderness Extremities/Musculoskelatal: no calf tenderness, no pedal edema Neurologic/Psych: alert, normal mood/affect, oriented x 3 Skin: normal color, warm/dry, no rash Lymphatic: no adenopathy Hospital Course: Cystitis/Left Pyelonephritis, e.coli UTI as proved with Urinary culture - Rocephin 1 g IV daily- leukocytosis is improving from 24 down to 11.8 -- Pt was switched to cipro 500 BID x 8 more days to complete a 10 day course. - IV rehydration, pt was tolerating oral intake without difficulty. Tachycardia - Got 3 L NSS overnight and is on maintenance fluids at this time. - Pt was tachycardic this morning, but improved during my examination late this morning to being regular with HR around 80. HR normal. - EKG appears WNL - CTA negative for PE Hepatic Lobe Lesion - Incidental finding on CT - Will require follow-up characterization, which is non-urgent - within 6 months or if needed earlier pending PCP decision. Hypertension - Continue Spironolactone DVT Prophylaxis: SCD, NADER, Lovenox 40 mg qAM Disposition: Lives independently, discharge home today. Total Time Spent: Greater than 30 minutes This includes examination of the patient, discharge planning, medication reconciliation, and communication with other providers. (Katharina Aragon PA-C) Pt seen and examined and I agree with PA assessment and plan VSS Labs reviewed Leukocytosis resolved Resting comfortably in bed Abd soft and nontender Stable for discharge on antibiotics for 10-14 day course for pyelo in addition to norco PRN (Ez Saravia D.OJono) Discharge Instructions Please refer to the electronic Patient Visit Report (Discharge Instructions) for additional information. (Katharina Aragon PA-C) Follow-Up Follow up with your Primary Care Provider within 1 week. (Katharina Aragon PA-C) Additional Copies To Kwame Oliver Jr,D.O.
== END 2016-11-04 11:25 | disposition home or self-care (01) | DRG 690 ==
LOC: C.EDB 18:13 → C.4E 23:01 → ENRESERV 23:09
PROVIDERS: ADMIT Student in an Organized Health Care Education/Training Program; ATTEND Hospitalist
DX: N12 Tubulo-interstitial nephritis, not specified as acute or chronic (principal); B96.20 Unspecified Escherichia coli [E. coli] as the cause of diseases classified elsewhere; R00.0 Tachycardia, unspecified; K76.9 Liver disease, unspecified; I10 Essential (primary) hypertension; E66.9 Obesity, unspecified; Z51.81 Encounter for therapeutic drug level monitoring; Z79.899 Other long term (current) drug therapy; Z87.442 Personal history of urinary calculi; Z87.440 Personal history of urinary (tract) infections; Z68.33 Body mass index [BMI] 33.0-33.9, adult; Z83.3 Family history of diabetes mellitus; Z82.49 Family history of ischemic heart disease and other diseases of the circulatory system; Z84.1 Family history of disorders of kidney and ureter

== ENCOUNTER → 2017-02-11 | Outpatient (CLI) | payer BC ==
[~2017-02-11] MED LIST changes: -HYDR-5688 PO
[2017-02-11 11:26] LABS: ALT/SGPT 21 U/L (12-78); AST/SGOT 12 U/L (15-37); BLOOD UREA NITROGEN 12 mg/dl (7-18); BUN/CREATININE RATIO 13.7 (10-20); CARBON DIOXIDE 28 mmol/L (21-32); CHLORIDE 105 mmol/L (98-107); CREATININE 0.88 mg/dl (0.60-1.20); GLUCOSE 94 mg/dl (70-99); POTASSIUM 4.3 mmol/L (3.5-5.1); SODIUM 136 mmol/L (136-145)
[2017-02-11 11:29] LABS: CHOLESTEROL 185 mg/dl (0-200); CHOLESTEROL/HDL RATIO 3.8; HDL CHOLESTEROL 49 mg/dl; LDL CHOLESTEROL CALCULATED 109 mg/dl; TRIGLYCERIDES 134 mg/dl (0-150); VERY LOW DENSITY LIPOPROT CALC 27 mg/dl
== END | disposition home or self-care (01) ==
LOC: C.LABBC 07:46
DX: E78.5 Hyperlipidemia, unspecified (principal); I10 Essential (primary) hypertension; K76.0 Fatty (change of) liver, not elsewhere classified

== ENCOUNTER → 2017-06-01 | Outpatient (CLI) | payer BC | END | disposition home or self-care (01) | LOC: C.PAPS 11:34 | PROVIDERS: ATTEND Physician Assistant | DX: Z01.419 Encounter for gynecological examination (general) (routine) without abnormal findings (principal) ==

== ENCOUNTER 2021-07-18 02:46 | Observation (INO) ==
[2021-07-18] MEDS ORDERED: NITROGLYCERIN SL 0.4 MG/TAB TAB ONE (03:39)
[2021-07-18] MEDS ORDERED: NITROGLYCERIN 60 SPRAYS/4.9 GM SPRAY SL STA (03:40)
--- NOTE | 2021-07-18 03:50 | Emergency Department Note ---
Impression & Plan Chest heaviness, Hypertension Admit to the [facility] service ED Provider Note NAME: ANNAMARIA CASON AGE: 51 SEX: F ARRIVES VIA: Walk-In INFORMANT: Patient ED PROVIDER(S): Teri Barkley DO CHIEF COMPLAINT: Chest pain PLAN: Disposition: Admit to the [facility] service Condition: Guarded MEDICAL DECISION MAKING: This is a 51-year-old female patient who woke up with chest pain and over all not feeling well. The patient found her blood pressure to be 160/110. She then developed significant chest heaviness that radiated through to her back. Her brought her here to the emergency department for evaluation. EKG was unremarkable. The patient was given sublingual nitro which did relieve her discomfort. This medication also reduced her blood pressure slightly. Troponin was negative. [facility] for further management. Triage Nursing notes reviewed and agree with them. Vital Signs: reviewed and unremarkable Differential diagnosis: Aortic dissection, NSTEMI, GERD, anxiety, PE, costochondritis ER treatment provided: Sublingual nitro Diagnostics interpreted by me: ECG: Sinus tachycardia at [address] segment elevation or signs of ischemia. There is no ectopy. Cardiac Monitoring: Normal sinus rhythm at 95 Laboratory studies: See below Imaging studies: As per my interpretation X-ray: No acute pulmonary infiltrates or consolidations. HPI: 51/F arrives for evaluation of chest pain. Patient awoke from sleep at 145 with some right-sided chest discomfort. Noticed some mid back pain. The patient was diagnosed 4 days ago with atrial flutter by her PCP. She was also hypertensive at that time. Her PCP started her on Xarelto and increased her metoprolol from 25 mg to 75 mg. The patient has been taking metoprolol since 2018 for tachycardia. The patient took her blood pressure at home and found to be 160/110. The patient complains of a heaviness on her chest that radiates through to her back. She has no family history of heart disease. She denies feeling short of breath. ROS: See above HPI for pertinent positives & negatives. A total of 10 systems reviewed and were otherwise negative. PAST MEDICAL HISTORY:Hypertension and tachycardia PAST SURGICAL HISTORY:See Below FAMILY HISTORY:See Below SOCIAL HISTORY:She lives with her . HOME MEDICATIONS:See list ALLERGIES:See list VITALS:See Below PHYSICAL EXAMINATION: HEENT: Head - normocephalic and atraumatic Pupils are equal, round, and r eactive to light. Extraocular eye muscles are intact, and sclera are anicteric. Nose - moist nasal mucosa without discharge. Mouth - moist buccal mucosa. Oropharynx is nonerythematous and there is no tonsillar exudate or edema noted. Neck: Supple; no JVD, nuchal rigidity, cervical lymphadenopathy, or auscultated bruits. Heart: Tachycardic rate and regular rhythm. There is a normal S1 and S2 with no murmurs, clicks, or gallops appreciated. Lungs: Clear to auscultation bilaterally with no wheezes, rales, or rhonchi. Abdomen: Soft, completely nontender, nondistended, with good bowel sounds. There are no palpable pulsatile masses or hepatosplenomegaly. There is no guarding, rigidity, or rebound noted. Extremities: No evidence of cyanosis, clubbing, or edema. There are easily palpable peripheral pulses. Skin: warm and dry with good turgor and no rashes. ED COURSE: Times/Reassessments: 320: The patient was evaluated in room C6. A complete history and physical was performed. An order was placed for continuous cardiac monitoring. The patient was in a normal sinus rhythm at a rate of 95. Twelve-lead EKG was obtained as described above. The patient continued to complain of chest heaviness and was given sublingual nitro. This gave her moderate relief of her chest discomfort. The patient had a chest x-ray which was unremarkable. No wide mediastinum. I discussed the case with the [facility] hospitalist and they will evaluate for further management. Teri Barkley DO Past Med/Surg History Medical History (Updated 07/18/21 @ 08:14 by Teri Barkley DO) Atrial flutter Cervicogenic headache Hypertension Kidney infection Kidney stone Surgical History Status post ORIF of fracture of ankle and 2 screws removed Family History Father Hypertension Depression Suicide Mother Hypertension SVT (supraventricular tachycardia) Social History Smoking Status: Never smoker Hx Alcohol Use: Yes Hx Substance Use: No Preferred Language: Luxembourgish Communication Ability: Effective Visual Impairment: No Limitations Hearing Ability: Normal Beliefs That Will Affect Care: None marital status: marital status details: 2 Children Current Living Situation: Spouse current occupational status: employed 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 [employer] Feels Safe at Home: Yes Allergies Allergies Allergy/AdvReac Type Severity Reaction Status Date / Time Sulfa (Sulfonamide Allergy Intermediate RASH Verified 10/07/20 15:27 Antibiotics) Home Meds Home Medications Medication Instructions Recorded Confirmed metoprolol succinate 25 mg 75 mg PO QAM 12/06/18 07/18/21 tablet,extended release 24 hr epinephrine 0.3 mg/0.3 mL 0.3 mg IM Q4H PRN 07/15/21 07/18/21 injection, auto-injector (EpiPen) fluticasone propionate 50 2 spray INTRANASAL BID g 07/15/21 07/18/21 mcg/actuation nasal spray,suspension (Flonase Allergy Relief) hydroxyzine HCl 25 mg tablet 25 mg PO HS PRN tab 07/15/21 07/18/21 l.norgest-eth.estradiol triphasic 1 tab PO DAILY 07/15/21 07/18/21 50-30 (6)/75-40(5)/125-30(10) tablet (Enpresse) levocetirizine 5 mg tablet 5 mg PO DAILY 07/15/21 07/15/21 omeprazole 40 mg capsule,delayed 40 mg PO DAILY PRN 07/15/21 07/15/21 release rivaroxaban 20 mg tablet (Xarelto) 15 mg PO BID 07/15/21 07/18/21 topiramate 25 mg tablet (Topamax) 25 mg PO BID 07/15/21 07/15/21 Results & Data (ED) Vital Signs Vital Signs - 24 hr 07/18/21 02:49 07/18/21 03:00 07/18/21 03:10 Temperature 36.6 C Temperature Source Temporal Artery Scan Pulse Rate 103 H 98 H 93 H Pulse Rate from SpO2 Sensor 101 H 91 H Pulse Rhythm Respiratory Rate 18 25 H 15 Respiratory Effort / Characteristics Non-Labored Spontaneous Respiratory Depth Normal Respiratory Pattern Blood Pressure 159/78 H 145/93 H Blood Pressure [Right Arm] Blood Pressure Mean 105 110 Blood Pressure Mean [Right Arm] Blood Pressure Position [Right Arm] Pulse Oximetry 98 99 97 Oxygen Delivery Method Room Air Sepsis Recent Fever Within 48 Hours No Sepsis New/Unexplained Change in Mental Status No Sepsis Action Taken by Nursing No Action Required 07/18/21 03:15 07/18/21 03:17 07/18/21 03:20 Temperature Temperature Source Pulse Rate 95 H Pulse Rate from SpO2 Sensor 95 H Pulse Rhythm Respiratory Rate 18 11 L Respiratory Effort / Characteristics Non-Labored Respiratory Depth Normal Respiratory Pattern Regular Blood Pressure Blood Pressure [Right Arm] 145/93 H Blood Pressure Mean Blood Pressure Mean [Right Arm] 110 Blood Pressure Position [Right Arm] Sitting Pulse Oximetry 96 97 Oxygen Delivery Method Room Air Room Air Sepsis Recent Fever Within 48 Hours Sepsis New/Unexplained Change in Mental Status Sepsis Action Taken by Nursing 07/18/21 03:30 07/18/21 03:31 07/18/21 03:40 Temperature Temperature Source Pulse Rate 95 H 100 H 98 H Pulse Rate from SpO2 Sensor 97 H Pulse Rhythm Respiratory Rate 12 25 H 22 Respiratory Effort / Characteristics Respiratory Depth Respiratory Pattern Blood Pressure 158/88 H Blood Pressure [Right Arm] Blood Pressure Mean 111 Blood Pressure Mean [Right Arm] Blood Pressure Position [Right Arm] Pulse Oximetry 98 Oxygen Delivery Method Sepsis Recent Fever Within 48 Hours Sepsis New/Unexplained Change in Mental Status Sepsis Action Taken by Nursing 07/18/21 03:43 07/18/21 03:50 07/18/21 04:00 Temperature Temperature Source Pulse Rate 95 H 90 94 H Pulse Rate from SpO2 Sensor 91 H 96 H Pulse Rhythm Regular Respiratory Rate 18 17 22 Respiratory Effort / Characteristics Respiratory Depth Respiratory Pattern Blood Pressure Blood Pressure [Right Arm] Blood Pressure Mean Blood Pressure Mean [Right Arm] Blood Pressure Position [Right Arm] Pulse Oximetry 97 97 97 Oxygen Delivery Method Room Air Sepsis Recent Fever Within 48 Hours Sepsis New/Unexplained Change in Mental Status Sepsis Action Taken by Nursing 07/18/21 04:01 07/18/21 04:10 07/18/21 04:20 Temperature Temperature Source Pulse Rate 98 H 88 89 Pulse Rate from SpO2 Sensor 98 H 86 94 H Pulse Rhythm Respiratory Rate 26 H 14 15 Respiratory Effort / Characteristics Respiratory Depth Respiratory Pattern Blood Pressure 141/80 H Blood Pressure [Right Arm] Blood Pressure Mean 100 Blood Pressure Mean [Right Arm] Blood Pressure Position [Right Arm] Pulse Oximetry 98 97 98 Oxygen Delivery Method Sepsis Recent Fever Within 48 Hours Sepsis New/Unexplained Change in Mental Status Sepsis Action Taken by Nursing 07/18/21 04:30 07/18/21 04:40 07/18/21 04:50 Temperature Temperature Source Pulse Rate 91 H 88 98 H Pulse Rate from SpO2 Sensor 89 91 H 98 H Pulse Rhythm Respiratory Rate 21 20 18 Respiratory Effort / Characteristics Respiratory Depth Respiratory Pattern Blood Pressure 138/78 Blood Pressure [Right Arm] Blood Pressure Mean 98 Blood Pressure Mean [Right Arm] Blood Pressure Position [Right Arm] Pulse Oximetry 96 98 97 Oxygen Delivery Method Sepsis Recent Fever Within 48 Hours Sepsis New/Unexplained Change in Mental Status Sepsis Action Taken by Nursing 07/18/21 05:00 07/18/21 05:01 07/18/21 05:10 Temperature Temperature Source Pulse Rate 97 H 105 H 97 H Pulse Rate from SpO2 Sensor 100 H 105 H 98 H Pulse Rhythm Respiratory Rate 20 39 H 28 H Respiratory Effort / Characteristics Non-Labored Respiratory Depth Normal Respiratory Pattern Regular Blood Pressure 121/94 Blood Pressure [Right Arm] 121/94 Blood Pressure Mean 103 Blood Pressure Mean [Right Arm] 103 Blood Pressure Position [Right Arm] Sitting Pulse Oximetry 99 96 98 Oxygen Delivery Method Room Air Sepsis Recent Fever Within 48 Hours Sepsis New/Unexplained Change in Mental Status Sepsis Action Taken by Nursing 07/18/21 05:20 Temperature Temperature Source Pulse Rate 75 Pulse Rate from SpO2 Sensor 81 Pulse Rhythm Respiratory Rate 22 Respiratory Effort / Characteristics Respiratory Depth Respiratory Pattern Blood Pressure Blood Pressure [Right Arm] Blood Pressure Mean Blood Pressure Mean [Right Arm] Blood Pressure Position [Right Arm] Pulse Oximetry 97 Oxygen Delivery Method Sepsis Recent Fever Within 48 Hours Sepsis New/Unexplained Change in Mental Status Sepsis Action Taken by Nursing Laboratory Data Result diagrams: 07/18/21 03:35 07/18/21 03:35 Lab Results 07/18/21 07/18/21 07/18/21 Range/Units 03:35 03:35 03:35 WBC 10.40 (4.8-10.8) K/uL RBC 4.75 (4.2-5.4) M/uL Hgb 14.1 (12.0-16.0) g/dL Hct 41.0 (37-47) % MCV 86.3 (80-100) fL MCH 29.7 (25-34) pg MCHC 34.4 (32-36) g/dL RDW Std Deviation 41.6 (36.4-46.3) fL RDW Coeff of Soha 13.2 (11.5-14.5) % Plt Count 339 (130-400) K/uL MPV 9.0 (7.4-10.4) fL Immature Gran % (Auto) 0.4 % Neut % (Auto) 59.6 % Lymph % (Auto) 25.8 % [place] % (Auto) 7.9 % Eos % (Auto) 6.0 % Baso % (Auto) 0.3 % Neut # (Auto) 6.21 (1.4-6.5) K/uL Lymph # (Auto) 2.68 (1.2-3.4) K/uL [place] # (Auto) 0.82 H (0.11-0.59) K/uL Eos # (Auto) 0.62 H (0-0.5) K/uL Baso # (Auto) 0.03 (0-0.2) K/uL Immature Gran # (Auto) 0.04 H (0.00-0.02) K/uL Sodium 138 (136-145) mmol/L Potassium 3.9 (3.5-5.1) mmol/L Chloride 105 (98-107) mmol/L Carbon Dioxide 23 (21-32) mmol/L Anion Gap 10 (3-11) BUN 9 (6-23) mg/dl Creatinine 0.74 (0.6-1.2) mg/dl Est Cr Clr Drug Dosing 94.0 ml/min Est GFR ( Amer) 110.3 ml/min Est GFR (Non-Af Amer) 95.1 ml/min BUN/Creatinine Ratio 12.2 (10-20) Glucose 130 H (70-99(Fasting)) mg/dl Calcium 9.6 (8.5-10.1) mg/dl Total Bilirubin 0.4 (0.2-1.0) mg/dl AST 13 (13-39) U/L ALT 12 (7-52) U/L Alkaline Phosphatase 75 (34-104) U/L Troponin I High Sens 3.3 (0-14) pg/ml Total Protein 6.9 (6.0-8.3) gm/dl Albumin 4.1 (3.4-5.0) gm/dl Globulin 2.8 (2.5-4.0) gm/dl Albumin/Globulin Ratio 1.5 (0.9-2) Lipase 31 (11-82) U/L SARS-CoV-2, RNA, NAAT (NEGATIVE) 07/18/21 Range/Units 04:46 WBC (4.8-10.8) K/uL RBC (4.2-5.4) M/uL Hgb (12.0-16.0) g/dL Hct (37-47) % MCV (80-100) fL MCH (25-34) pg MCHC (32-36) g/dL RDW Std Deviation (36.4-46.3) fL RDW Coeff of Soha (11.5-14.5) % Plt Count (130-400) K/uL MPV (7.4-10.4) fL Immature Gran % (Auto) % Neut % (Auto) % Lymph % (Auto) % [place] % (Auto) % Eos % (Auto) % Baso % (Auto) % Neut # (Auto) (1.4-6.5) K/uL Lymph # (Auto) (1.2-3.4) K/uL [place] # (Auto) (0.11-0.59) K/uL Eos # (Auto) (0-0.5) K/uL Baso # (Auto) (0-0.2) K/uL Immature Gran # (Auto) (0.00-0.02) K/uL Sodium (136-145) mmol/L Potassium (3.5-5.1) mmol/L Chloride (98-107) mmol/L Carbon Dioxide (21-32) mmol/L Anion Gap (3-11) BUN (6-23) mg/dl Creatinine (0.6-1.2) mg/dl Est Cr Clr Drug Dosing ml/min Est GFR ( Amer) ml/min Est GFR (Non-Af Amer) ml/min BUN/Creatinine Ratio (10-20) Glucose (70-99(Fasting)) mg/dl Calcium (8.5-10.1) mg/dl Total Bilirubin (0.2-1.0) mg/dl AST (13-39) U/L ALT (7-52) U/L Alkaline Phosphatase (34-104) U/L Troponin I High Sens (0-14) pg/ml Total Protein (6.0-8.3) gm/dl Albumin (3.4-5.0) gm/dl Globulin (2.5-4.0) gm/dl Albumin/Globulin Ratio (0.9-2) Lipase (11-82) U/L SARS-CoV-2, RNA, NAAT NEGATIVE (NEGATIVE) Administered Medications Discontinued Medications Aspirin (Aspirin Chew 324 Mg) 324 mg PO NOW STA Stop: 07/18/21 04:39 Last Admin: 07/18/21 04:47 Dose: 324 mg Documented by: [id number] Nitroglycerin (Nitroglycerin Sl 0.4 Mg/Tab Tab) Confirm Administered Dose 0.4 mg .ROUTE .STK-MED ONE Stop: 07/18/21 03:40 Last Admin: 07/18/21 03:40 Dose: 0.4 mg Documented by: [id number] Nitroglycerin (Nitroglycerin 60 Sprays/4.9 Gm [place]) 1 sprays SL NOW STA Stop: 07/18/21 03:41 Last Admin: 07/18/21 04:48 Dose: Not Given Documented by: [id number] Discharge Plan Visit Data Chief Complaint: Chest Pain Stated Complaint: CHEST PAIN,HIGH BP ED Provider: Teri Barkley Discharge Problem: Chest heaviness, Hypertension Patient Disposition: Home - Self-Care Discharge Instructions Interventions: ED Discharge Assessment Last Done: 07/18/21 06:37 Discharge Problem: Hypertension Qualifiers: Hypertension type: unspecified secondary hypertension Qualified Code(s): I15.9 - Secondary hypertension, unspecified
[2021-07-18 03:51] LABS: Basophils # (auto) 0.03 K/uL (0-0.2); Basophils % (auto) 0.3 %; Eosinophils # (auto) 0.62 K/uL (0-0.5); Hemoglobin 14.1 g/dL (12.0-16.0); Immature Granulocytes # (auto) 0.04 K/uL (0.00-0.02); Immature Granulocytes % (auto) 0.4 %; Lymphocytes # (auto) 2.68 K/uL (1.2-3.4); Lymphocytes % (auto) 25.8 %; Mean Corpuscular Hemoglobin 29.7 pg (25-34); Mean Corpuscular Hgb Conc 34.4 g/dL (32-36); Mean Corpuscular Volume 86.3 fL (80-100); Monocytes # (auto) 0.82 K/uL (0.11-0.59); Monocytes % (auto) 7.9 %; Neutrophils # (auto) 6.21 K/uL (1.4-6.5); Neutrophils % (auto) 59.6 %; Platelet Count 339 K/uL (130-400); RDW Coefficient of Variation 13.2 % (11.5-14.5); RDW Standard Deviation 41.6 fL (36.4-46.3); Red Blood Count 4.75 M/uL (4.2-5.4)
[2021-07-18 04:30] LABS: Albumin Globulin Ratio 1.5 (0.9-2); Albumin Level 4.1 gm/dl (3.4-5.0); BUN Creatinine Ratio 12.2 (10-20); Bilirubin,Total 0.4 mg/dl (0.2-1.0); Calcium 9.6 mg/dl (8.5-10.1); Est GFR (African American) 110.3 ml/min; Est GFR (Non-African American) 95.1 ml/min; Globulin 2.8 gm/dl (2.5-4.0); Potassium 3.9 mmol/L (3.5-5.1); Total Protein 6.9 gm/dl (6.0-8.3)
[2021-07-18] MEDS ORDERED: ASPIRIN CHEW 324 MG PO STA (04:38)
--- NOTE | 2021-07-18 05:40 | History & Physical Report ---
Date of Service July 18, 2021 Assessment & Plan (1) Chest pain: Plan: 51yo female with history of HTN, newly diagnosed atrial flutter on Metoprolol and Rivaroxaban, FHx of CAD in grandfather in his 50's presenting with chest pain that woke her from sleep. Troponin at T0 = 3.3 (negative), no EKG evidence of ischemia. Chest pressure still present but improved with ASA and Nitro. -Observation to medical with telemetry -Send repeat troponin now - 2 hours after presentation -Trend troponin q 6 hours -Check Mg and replete as needed -Nitro PRN chest pain -EKG PRN chest pain -Exercise stress test ordered pending troponin results. Will hold Metoprolol for test and administer after -Check A1C and Lipid panel for risk stratification (2) Hypertension: Plan: Blood pressure well controlled at present -Continue Metoprolol 75mg po daily. On hold now - to be resumed after stress testing -Continue to monitor BP (3) Atrial flutter: Plan: Presently in sinus tachycardia -Continue Metoprolol 75mg po daily -Continue Rivaroxaban 15mg po BID -Patient was scheduled to see Cardiology Today at 13:00 (4) Sinusitis: Plan: Was recently started on Omnicef for sinusitis -Continue course - Omnicef 300mg po BID x 15 days as prescribed by PCP -Continue Fluticasone Plan: F/E/N - [place]. Electrolytes WNL - check Mg x 1 and replete as needed, NPO for now for possible stress testing Ppx - On Rivaroxaban, will continue Code - Full per discussion with patient Dispo - Observation to medical with telemetry History of Present Illness Chief Complaint: chest pain Primary Care Provider: Kwame Oliver Jr, Shital Judge is a 51yo female with history of hypertension, newly diagnosed atrial flutter on Metoprolol and Rivaroxaban presenting with chest pain that woke her from sleep. Patient has been feeling well overall, has had some increased stress at work over the last two months. She woke from sleep this AM with chest pain - substernal, right sided with radiation through to her back. Pain 6/10 in severity, squeezing in nature with associated nausea, shortness of breath and diaphoresis. She took some Tums with no relief. Non-exertional, non-positional, non-pleuritic. Improved now but still present and dull. Patient with no history of CAD, no prior catheterizations, no CHF. She is lightly active at home and denies exertional chest pain or dyspnea. She was diagnosed with atrial flutter last week and started on Rivaroxaban. She had been on Metoprolol 25mg po daily for SVT which was increased to 75mg daily. Patient reports fatigue and decreased exercise tolerance and fatigue over the last week. No additional complaints. Denies fever, chills, cough, SOB, abdominal pain, nausea, vomiting, diarrhea or constipation. ER Course: ASA 324mg, Nitro Allergies Allergy/AdvReac Type Severity Reaction Status Date / Time Sulfa (Sulfonamide Allergy Intermediate RASH Verified 10/07/20 15:27 Antibiotics) Home Medications Medication Instructions Recorded Confirmed Type metoprolol succinate 25 mg 75 mg PO QAM 12/06/18 07/18/21 History tablet,extended release 24 hr epinephrine 0.3 mg/0.3 mL 0.3 mg IM Q4H PRN 07/15/21 07/18/21 History injection, auto-injector (EpiPen) fluticasone propionate 50 2 spray INTRANASAL BID g 07/15/21 07/18/21 History mcg/actuation nasal spray,suspension (Flonase Allergy Relief) hydroxyzine HCl 25 mg tablet 25 mg PO HS PRN tab 07/15/21 07/18/21 History l.norgest-eth.estradiol triphasic 1 tab PO DAILY 07/15/21 07/18/21 History 50-30 (6)/75-40(5)/125-30(10) tablet (Enpresse) levocetirizine 5 mg tablet 5 mg PO DAILY 07/15/21 07/15/21 History omeprazole 40 mg capsule,delayed 40 mg PO DAILY PRN 07/15/21 07/15/21 History release rivaroxaban 20 mg tablet (Xarelto) 15 mg PO BID 07/15/21 07/18/21 History topiramate 25 mg tablet (Topamax) 25 mg PO BID 07/15/21 07/15/21 History Past Med/Surg History Medical History (Updated 07/18/21 @ 05:32 by Zari Birmingham DO) Atrial flutter Cervicogenic headache Hypertension Kidney infection Kidney stone Surgical History Status post ORIF of fracture of ankle and 2 screws removed Family History Father Hypertension Depression Suicide Mother Hypertension SVT (supraventricular tachycardia) Social History Smoking Status: Never smoker Hx Alcohol Use: Yes Hx Substance Use: No Preferred Language: French Communication Ability: Effective Visual Impairment: No Limitations Hearing Ability: Normal Beliefs That Will Affect Care: None marital status: marital status details: 2 Children Current Living Situation: Spouse current occupational status: employed 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 [employer] Feels Safe at Home: Yes Review of Systems Review of Systems: All systems reviewed & are unremarkable except as noted in HPI & below Physical Exam Physical Exam: General: patient resting comfortably, NAD, non-toxic in appearance, AA&O x 4, anxious in appearance Skin: warm, dry, intact, no rashes or lesions HEENT: NC/AT, PERRL, EOMI, anicteric sclera, conjunctiva without injection, external ear normal to inspection and nontender, nares patent, moist mucus membranes, dentition intact, no oropharyngeal lesions, neck supple, trachea midline, no LAD, no thyromegaly, no JVD Heart: +S1/S2, regular, tachycardic, no m/r/g, no reproducible chest wall pain Lungs: equal air entry bilaterally, no rales/rhonchi/wheezes Abd: +BS, soft, NT/ND, no masses/organomegaly/ascites Ext: warm, 2+ pulses in UE/LE bilaterally, no clubbing/cyanosis or edema Neuro: nonfocal, patient AA&O x 4, speech intact, no facial droop, moving all extremities on command with equal strength 5/5 Results & Data Results & Data ([facility]) Vital Signs (Past 12 Hours) Vital Signs Temp Pulse Resp BP BP Pulse Ox 07/18/21 05:01 18 121/94 98 07/18/21 04:40 88 20 98 07/18/21 04:30 91 H 21 138/78 96 07/18/21 04:20 89 15 98 07/18/21 04:10 88 14 97 07/18/21 04:01 98 H 26 H 141/80 H 98 07/18/21 04:00 94 H 22 97 07/18/21 03:50 90 17 97 07/18/21 03:43 95 H 18 97 07/18/21 03:40 98 H 22 98 07/18/21 03:31 100 H 25 H 158/88 H 07/18/21 03:30 95 H 12 07/18/21 03:20 95 H 11 L 97 07/18/21 03:15 18 145/93 H 96 07/18/21 03:10 93 H 15 97 07/18/21 03:00 98 H 25 H 145/93 H 99 07/18/21 02:49 36.6 C 103 H 18 159/78 H 98 Laboratory Results Laboratory Results WBC 10.40 K/uL (4.8-10.8) 07/18/21 03:35 RBC 4.75 M/uL (4.2-5.4) 07/18/21 03:35 Hgb 14.1 g/dL (12.0-16.0) 07/18/21 03:35 Hct 41.0 % (37-47) 07/18/21 03:35 MCV 86.3 fL (80-100) 07/18/21 03:35 MCH 29.7 pg (25-34) 07/18/21 03:35 MCHC 34.4 g/dL (32-36) 07/18/21 03:35 RDW Std Deviation 41.6 fL (36.4-46.3) 07/18/21 03:35 RDW Coeff of Soha 13.2 % (11.5-14.5) 07/18/21 03:35 Plt Count 339 K/uL (130-400) 07/18/21 03:35 MPV 9.0 fL (7.4-10.4) 07/18/21 03:35 Immature Gran % (Auto) 0.4 % 07/18/21 03:35 Neut % (Auto) 59.6 % 07/18/21 03:35 Lymph % (Auto) 25.8 % 07/18/21 03:35 [place] % (Auto) 7.9 % 07/18/21 03:35 Eos % (Auto) 6.0 % 07/18/21 03:35 Baso % (Auto) 0.3 % 07/18/21 03:35 Neut # (Auto) 6.21 K/uL (1.4-6.5) 07/18/21 03:35 Lymph # (Auto) 2.68 K/uL (1.2-3.4) 07/18/21 03:35 [place] # (Auto) 0.82 K/uL (0.11-0.59) H 07/18/21 03:35 Eos # (Auto) 0.62 K/uL (0-0.5) H 07/18/21 03:35 Baso # (Auto) 0.03 K/uL (0-0.2) 07/18/21 03:35 Immature Gran # (Auto) 0.04 K/uL (0.00-0.02) H 07/18/21 03:35 Sodium 138 mmol/L (136-145) 07/18/21 03:35 Potassium 3.9 mmol/L (3.5-5.1) 07/18/21 03:35 Chloride 105 mmol/L (98-107) 07/18/21 03:35 Carbon Dioxide 23 mmol/L (21-32) 07/18/21 03:35 Anion Gap 10 (3-11) 07/18/21 03:35 BUN 9 mg/dl (6-23) 07/18/21 03:35 Creatinine 0.74 mg/dl (0.6-1.2) 07/18/21 03:35 Est Cr Clr Drug Dosing 94.0 ml/min 07/18/21 03:35 Est GFR ( Amer) 110.3 ml/min 07/18/21 03:35 Est GFR (Non-Af Amer) 95.1 ml/min 07/18/21 03:35 BUN/Creatinine Ratio 12.2 (10-20) 07/18/21 03:35 Glucose 130 mg/dl (70-99(Fasting)) H 07/18/21 03:35 Calcium 9.6 mg/dl (8.5-10.1) 07/18/21 03:35 Total Bilirubin 0.4 mg/dl (0.2-1.0) 07/18/21 03:35 AST 13 U/L (13-39) 07/18/21 03:35 ALT 12 U/L (7-52) 07/18/21 03:35 Alkaline Phosphatase 75 U/L (34-104) 07/18/21 03:35 Troponin I High Sens 3.3 pg/ml (0-14) 07/18/21 03:35 Total Protein 6.9 gm/dl (6.0-8.3) 07/18/21 03:35 Albumin 4.1 gm/dl (3.4-5.0) 07/18/21 03:35 Globulin 2.8 gm/dl (2.5-4.0) 07/18/21 03:35 Albumin/Globulin Ratio 1.5 (0.9-2) 07/18/21 03:35 Lipase 31 U/L (11-82) 07/18/21 03:35 SARS-CoV-2, RNA, NAAT NEGATIVE (NEGATIVE) 07/18/21 04:46 ECG Additional Comments: EKG with ST at 106, normal axis, LT=371, QRS=80, VEo=710, no acute ischemic changes Code Status & VTE Plan VTE Prophylaxis Plan VTE Prophylaxis will be ordered: Yes PG Care Time/CCT Total # of Minutes Spent Total Time Spent with Patient: Total time spent is greater than 50% in coordination of care (as documented) at patient's floor/unit and/or counseling patient: Coding Level of Care Code INT OBSERVATION CARE 50M LVL 2 Diagnoses Hypertension I10 Atrial flutter I48.92 Chest pain R07.9 Sinusitis J32.9
[2021-07-18 06:09] LABS: Troponin I High Sensitivity 3.1 pg/ml (0-14)
[2021-07-18 06:21] LABS: Chol HDL Ratio 3.6 (0-5); Magnesium 1.9 mg/dl (1.7-2.4)
[2021-07-18 07:14] LABS: Estimated Average Glucose 134 mg/dl; Hemoglobin A1C 6.3 % (4.5-5.6)
--- NOTE | 2021-07-18 08:12 | XRay Report ---
SINGLE VIEW CHEST CLINICAL HISTORY: Atypical chest pain FINDINGS: An AP, portable, upright chest radiograph is compared to study dated 03/19/2018. The cardiome diastinal silhouette is unremarkable. The lungs and pleural spaces are clear. No pneumothorax is seen . The bony thorax is grossly intact. IMPRESSION: No active disease in the chest. ACT 112: Negative or not required by law. Electronically signed by: Ismael Aguirre M.D. 07/18/2021 8:11 AM
[2021-07-18] MEDS ORDERED: NITROGLYCERIN SL 0.4 MG/TAB TAB SL PRN (08:51)
[2021-07-18] MEDS ORDERED: hydrOXYzine HCl 25 MG TAB PO PRN (08:51)
[2021-07-18] MEDS ORDERED: ACETAMINOPHEN 325 MG TAB PO PRN (08:51)
[2021-07-18] MEDS ORDERED: ONDANSETRON INJ 2 MG/ML 2 ML VIAL IV PRN (08:51)
[2021-07-18] MEDS ORDERED: [UNRECOGNIZED DRUG - OTHER] PO SCH (09:00)
[2021-07-18] MEDS ORDERED: [UNRECOGNIZED DRUG - OTHER] PO SCH (09:00)
[2021-07-18] MEDS ORDERED: CEFDINIR 300 MG CAP PO SCH (09:00)
[2021-07-18] MEDS ORDERED: FLUTICASONE PROPIONATE NA SPR 16 GM BTL NAE SCH (09:00)
[2021-07-18] MEDS ORDERED: NORETHINDRONE 0.35 MG PO SCH (09:00)
--- NOTE | 2021-07-18 14:32 | Medical Student Progress Note ---
Date of Service July 18, 2021 Assessment & Plan (1) Chest pain: Plan: Mrs. Judge is a 51 yo female with history of HTN well controlled with Metoprolol, she is newly diagnosed atrial flutter, recently started on Rivaroxaban. She presented with pressure-like chest pain that woke her from sleep, associated with SOB, nausea and diaphoresis It radiated to the back. Relieved with nitroglycerin and ASA given at the ED. -Troponin negative x2 on admission - normal lipid panel -A1c 6.3 -EKG with no ST segment changes -GUTIERREZ score 0 -Heart score 4 -Awaiting stress test results (2) Atrial flutter: Plan: Patient has been in sinus tachycardia in the 100s -Continue Metoprolol 75mg po daily -Continue Rivaroxaban 15mg po BID -Follows up with outpatient Cardiology (3) Hypertension: Plan: Chronic -Continue Metoprolol 75mg po daily -Continue to monitor BP (4) Sinusitis: Plan: Was recently started on Omnicef for sinusitis -Continue course - Omnicef 300mg po BID x 15 days as prescribed by PCP -Continue Fluticasone Plan: Diet: regular Code: Full Ppx - continue Rivaroxaban, will continue Admission and Anticipated Discharge Date Admission Date: July 18, 2021 Subjective Mrs. Judge is doing well today. She is anxious. She does not have any chest pain, SOB, DO, diaphoresis. She denies fever, nausea, vomiting, weakness, numbness, tingling. Review of Systems Constitutional: no fever, no chills and no sweats Respiratory: no cough, no dyspnea and no dyspnea on exertion Cardiovascular: no chest pain, no chest pain at rest, no dyspnea and no dyspnea on exertion Gastrointestinal: no nausea and no vomiting Neurologic: no generalized weakness, no tingling and no numbness Physical Exam Constitutional: WD/WN, vitals as above (anxious ) Respiratory: normal respiratory effort, lungs clear to auscultation Cardiovascular: Rate/Rhythm: regular rhythm and + tachycardic Heart Sounds: normal S1 and normal S2; no gallop, no murmur and no cardiac rub Extremities: no pedal edema Gastrointestinal (Abdomen): normal bowel sounds, soft, nontender, no hepatosplenomegaly Results & Data ([facility]) Vital Signs (Past 12 Hours) Vital Signs Temp Pulse Pulse Resp BP BP Pulse Ox 07/18/21 11:15 36.8 C 105 H 19 123/67 94 07/18/21 10:30 102 H 07/18/21 10:18 36.8 C 105 H 19 123/67 94 07/18/21 07:00 36.8 C 94 H 105 H 19 143/76 H 123/67 94 07/18/21 06:30 97 H 20 140/86 96 07/18/21 06:20 99 H 25 H 94 07/18/21 06:10 87 24 98 07/18/21 06:00 92 H 22 140/84 98 07/18/21 05:50 82 22 98 07/18/21 05:40 94 H 22 98 07/18/21 05:30 86 22 98 07/18/21 05:20 75 22 97 07/18/21 05:10 97 H 28 H 98 07/18/21 05:01 105 H 39 H 121/94 121/94 96 07/18/21 05:00 97 H 20 99 07/18/21 04:50 98 H 18 97 07/18/21 04:40 88 20 98 07/18/21 04:30 91 H 21 138/78 96 07/18/21 04:20 89 15 98 07/18/21 04:10 88 14 97 07/18/21 04:01 98 H 26 H 141/80 H 98 07/18/21 04:00 94 H 22 97 07/18/21 03:50 90 17 97 07/18/21 03:43 95 H 18 97 07/18/21 03:40 98 H 22 98 07/18/21 03:31 100 H 25 H 158/88 H 07/18/21 03:30 95 H 12 07/18/21 03:20 95 H 11 L 97 07/18/21 03:15 18 145/93 H 96 07/18/21 03:10 93 H 15 97 07/18/21 03:00 98 H 25 H 145/93 H 99 07/18/21 02:49 36.6 C 103 H 18 159/78 H 98 Laboratory Results Laboratory Results WBC 10.40 K/uL (4.8-10.8) 07/18/21 03:35 RBC 4.75 M/uL (4.2-5.4) 07/18/21 03:35 Hgb 14.1 g/dL (12.0-16.0) 07/18/21 03:35 Hct 41.0 % (37-47) 07/18/21 03:35 MCV 86.3 fL (80-100) 07/18/21 03:35 MCH 29.7 pg (25-34) 07/18/21 03:35 MCHC 34.4 g/dL (32-36) 07/18/21 03:35 RDW Std Deviation 41.6 fL (36.4-46.3) 07/18/21 03:35 RDW Coeff of Soha 13.2 % (11.5-14.5) 07/18/21 03:35 Plt Count 339 K/uL (130-400) 07/18/21 03:35 MPV 9.0 fL (7.4-10.4) 07/18/21 03:35 Immature Gran % (Auto) 0.4 % 07/18/21 03:35 Neut % (Auto) 59.6 % 07/18/21 03:35 Lymph % (Auto) 25.8 % 07/18/21 03:35 [place] % (Auto) 7.9 % 07/18/21 03:35 Eos % (Auto) 6.0 % 07/18/21 03:35 Baso % (Auto) 0.3 % 07/18/21 03:35 Neut # (Auto) 6.21 K/uL (1.4-6.5) 07/18/21 03:35 Lymph # (Auto) 2.68 K/uL (1.2-3.4) 07/18/21 03:35 [place] # (Auto) 0.82 K/uL (0.11-0.59) H 07/18/21 03:35 Eos # (Auto) 0.62 K/uL (0-0.5) H 07/18/21 03:35 Baso # (Auto) 0.03 K/uL (0-0.2) 07/18/21 03:35 Immature Gran # (Auto) 0.04 K/uL (0.00-0.02) H 07/18/21 03:35 Sodium 138 mmol/L (136-145) 07/18/21 03:35 Potassium 3.9 mmol/L (3.5-5.1) 07/18/21 03:35 Chloride 105 mmol/L (98-107) 07/18/21 03:35 Carbon Dioxide 23 mmol/L (21-32) 07/18/21 03:35 Anion Gap 10 (3-11) 07/18/21 03:35 BUN 9 mg/dl (6-23) 07/18/21 03:35 Creatinine 0.74 mg/dl (0.6-1.2) 07/18/21 03:35 Est Cr Clr Drug Dosing 94.0 ml/min 07/18/21 03:35 Est GFR ( Amer) 110.3 ml/min 07/18/21 03:35 Est GFR (Non-Af Amer) 95.1 ml/min 07/18/21 03:35 BUN/Creatinine Ratio 12.2 (10-20) 07/18/21 03:35 Glucose 130 mg/dl (70-99(Fasting)) H 07/18/21 03:35 Estimat Average Glucose 134 mg/dl 07/18/21 05:29 Hemoglobin A1c 6.3 % (4.5-5.6) H 07/18/21 05:29 Calcium 9.6 mg/dl (8.5-10.1) 07/18/21 03:35 Magnesium 1.9 mg/dl (1.7-2.4) 07/18/21 05:29 Total Bilirubin 0.4 mg/dl (0.2-1.0) 07/18/21 03:35 AST 13 U/L (13-39) 07/18/21 03:35 ALT 12 U/L (7-52) 07/18/21 03:35 Alkaline Phosphatase 75 U/L (34-104) 07/18/21 03:35 Troponin I High Sens 2.8 pg/ml (0-14) 07/18/21 13:02 Total Protein 6.9 gm/dl (6.0-8.3) 07/18/21 03:35 Albumin 4.1 gm/dl (3.4-5.0) 07/18/21 03:35 Globulin 2.8 gm/dl (2.5-4.0) 07/18/21 03:35 Albumin/Globulin Ratio 1.5 (0.9-2) 07/18/21 03:35 Triglycerides 108 mg/dl (0-150) 07/18/21 05:29 Cholesterol 170 mg/dl (0-200) 07/18/21 05:29 LDL Cholesterol, Calc 101 mg/dl 07/18/21 05:29 VLDL Cholesterol, Calc 22 mg/dl (0-30) 07/18/21 05:29 HDL Cholesterol 47 mg/dl 07/18/21 05:29 Cholesterol/HDL Ratio 3.6 (0-5) 07/18/21 05:29 Lipase 31 U/L (11-82) 07/18/21 03:35 SARS-CoV-2, RNA, NAAT NEGATIVE (NEGATIVE) 07/18/21 04:46 Impressions Chest X-Ray 07/18/21 03:41 SINGLE VIEW CHEST CLINICAL HISTORY: Atypical chest pain FINDINGS: An AP, portable, upright chest radiograph is compared to study dated 03/19/2018. The cardiomediastinal silhouette is unremarkable. The lungs and pleural spaces are clear. No pneumothorax is seen. The bony thorax is grossly intact. IMPRESSION: No active disease in the chest. ACT 112: Negative or not required by law. Electronically signed by: Ismael Aguirre M.D. 07/18/2021 8:11 AM Medications Administered Current Medications Acetaminophen (Acetaminophen 325 Mg Tab) 650 mg PO Q4H PRN PRN Reason: pain/fever Stop: 08/17/21 08:50 Cefdinir (Cefdinir 300 Mg Cap) 300 mg PO BID [facility] Stop: 07/28/21 08:59 Last Admin: 07/18/21 09:48 Dose: 300 mg Documented by: Fluticasone Propionate (Fluticasone Propionate Na Spr 16 Gm Btl) 2 sprays SHANDA BID [facility] Stop: 08/17/21 08:59 Last Admin: 07/18/21 09:49 Dose: 2 sprays Documented by: Hydroxyzine HCl (Hydroxyzine Hcl 25 Mg Tab) 25 mg PO HS PRN PRN Reason: Insomnia Stop: 08/17/21 08:50 Miscellaneous (Norethindrone 0.35mg 28-Day: Pt's Own Oral Contraceptive) 1 ea PO DAILY [facility]; Protocol Stop: 08/17/21 08:59 Last Admin: 07/18/21 10:28 Dose: 1 ea Documented by: Nitroglycerin (Nitroglycerin Sl 0.4 Mg/Tab Tab) 0.4 mg SL PRN PRN PRN Reason: Chest Pain Stop: 08/17/21 08:50 Ondansetron HCl (Ondansetron Inj 2 Mg/Ml 2 Ml Vial) 4 mg IV Q6H PRN PRN Reason: Nausea Stop: 08/17/21 08:50 Rivaroxaban (Rivaroxaban 20 Mg Tab) 20 mg PO DAILY@1800 GEN Stop: 08/17/21 17:59
[2021-07-18] MEDS ORDERED: RIVAROXABAN 20 MG TAB PO SCH (18:00)
--- NOTE | 2021-07-18 18:20 | Discharge Summary ---
Date of Service July 18, 2021 Admission HPI Per Admitting Provider Shital Judge is a 51yo female with history of hypertension, newly diagnosed atrial flutter on Metoprolol and Rivaroxaban presenting with chest pain that woke her from sleep. Patient has been feeling well overall, has had some increased stress at work over the last two months. She woke from sleep this AM with chest pain - substernal, right sided with radiation through to her back. Pain 6/10 in severity, squeezing in nature with associated nausea, shortness of breath and diaphoresis. She took some Tums with no relief. Non-exertional, non-positional, non-pleuritic. Improved now but still present and dull. Patient with no history of CAD, no prior catheterizations, no CHF. She is lightly active at home and denies exertional chest pain or dyspnea. She was diagnosed with atrial flutter last week and started on Rivaroxaban. She had been on Metoprolol 25mg po daily for SVT which was increased to 75mg daily. Patient reports fatigue and decreased exercise tolerance and fatigue over the last week. No additional complaints. Denies fever, chills, cough, SOB, abdominal pain, nausea, vomiting, diarrhea or constipation. ER Course: ASA 324mg, Nitro Principal Diagnosis Typical chest pain Discharge Exam General: patient resting comfortably, NAD HEENT: NCAT, PERRL, EOMI, anicteric, conjunctiva without injection, moist mucus membranes Heart: +S1/S2, regular, tachycardic, no murmurs, no reproducible chest wall pain Lungs:CTA Abdomen: nontender, nondistended, soft Extremities: warm, no clubbing or cyanosis Neuro: AxOx3, speech intact, moving all extremities, strength 5/5 Discharge Data Allergies Allergy/AdvReac Type Severity Reaction Status Date / Time Sulfa (Sulfonamide Allergy Intermediate RASH Verified 10/07/20 15:27 Antibiotics) Consultations 07/18/21 04:38 ED Decision to Admit Stat Ordered Studies Laboratory Results WBC 10.40 K/uL (4.8-10.8) 07/18/21 03:35 RBC 4.75 M/uL (4.2-5.4) 07/18/21 03:35 Hgb 14.1 g/dL (12.0-16.0) 07/18/21 03:35 Hct 41.0 % (37-47) 07/18/21 03:35 MCV 86.3 fL (80-100) 07/18/21 03:35 MCH 29.7 pg (25-34) 07/18/21 03:35 MCHC 34.4 g/dL (32-36) 07/18/21 03:35 RDW Std Deviation 41.6 fL (36.4-46.3) 07/18/21 03:35 RDW Coeff of Soha 13.2 % (11.5-14.5) 07/18/21 03:35 Plt Count 339 K/uL (130-400) 07/18/21 03:35 MPV 9.0 fL (7.4-10.4) 07/18/21 03:35 Immature Gran % (Auto) 0.4 % 07/18/21 03:35 Neut % (Auto) 59.6 % 07/18/21 03:35 Lymph % (Auto) 25.8 % 07/18/21 03:35 [place] % (Auto) 7.9 % 07/18/21 03:35 Eos % (Auto) 6.0 % 07/18/21 03:35 Baso % (Auto) 0.3 % 07/18/21 03:35 Neut # (Auto) 6.21 K/uL (1.4-6.5) 07/18/21 03:35 Lymph # (Auto) 2.68 K/uL (1.2-3.4) 07/18/21 03:35 [place] # (Auto) 0.82 K/uL (0.11-0.59) H 07/18/21 03:35 Eos # (Auto) 0.62 K/uL (0-0.5) H 07/18/21 03:35 Baso # (Auto) 0.03 K/uL (0-0.2) 07/18/21 03:35 Immature Gran # (Auto) 0.04 K/uL (0.00-0.02) H 07/18/21 03:35 Sodium 138 mmol/L (136-145) 07/18/21 03:35 Potassium 3.9 mmol/L (3.5-5.1) 07/18/21 03:35 Chloride 105 mmol/L (98-107) 07/18/21 03:35 Carbon Dioxide 23 mmol/L (21-32) 07/18/21 03:35 Anion Gap 10 (3-11) 07/18/21 03:35 BUN 9 mg/dl (6-23) 07/18/21 03:35 Creatinine 0.74 mg/dl (0.6-1.2) 07/18/21 03:35 Est Cr Clr Drug Dosing 94.0 ml/min 07/18/21 03:35 Est GFR ( Amer) 110.3 ml/min 07/18/21 03:35 Est GFR (Non-Af Amer) 95.1 ml/min 07/18/21 03:35 BUN/Creatinine Ratio 12.2 (10-20) 07/18/21 03:35 Glucose 130 mg/dl (70-99(Fasting)) H 07/18/21 03:35 Estimat Average Glucose 134 mg/dl 07/18/21 05:29 Hemoglobin A1c 6.3 % (4.5-5.6) H 07/18/21 05:29 Calcium 9.6 mg/dl (8.5-10.1) 07/18/21 03:35 Magnesium 1.9 mg/dl (1.7-2.4) 07/18/21 05:29 Total Bilirubin 0.4 mg/dl (0.2-1.0) 07/18/21 03:35 AST 13 U/L (13-39) 07/18/21 03:35 ALT 12 U/L (7-52) 07/18/21 03:35 Alkaline Phosphatase 75 U/L (34-104) 07/18/21 03:35 Troponin I High Sens 3.8 pg/ml (0-14) 07/18/21 17:11 Total Protein 6.9 gm/dl (6.0-8.3) 07/18/21 03:35 Albumin 4.1 gm/dl (3.4-5.0) 07/18/21 03:35 Globulin 2.8 gm/dl (2.5-4.0) 07/18/21 03:35 Albumin/Globulin Ratio 1.5 (0.9-2) 07/18/21 03:35 Triglycerides 108 mg/dl (0-150) 07/18/21 05:29 Cholesterol 170 mg/dl (0-200) 07/18/21 05:29 LDL Cholesterol, Calc 101 mg/dl 07/18/21 05:29 VLDL Cholesterol, Calc 22 mg/dl (0-30) 07/18/21 05:29 HDL Cholesterol 47 mg/dl 07/18/21 05:29 Cholesterol/HDL Ratio 3.6 (0-5) 07/18/21 05:29 Lipase 31 U/L (11-82) 07/18/21 03:35 SARS-CoV-2, RNA, NAAT NEGATIVE (NEGATIVE) 07/18/21 04:46 Impressions Chest X-Ray 07/18/21 03:41 SINGLE VIEW CHEST CLINICAL HISTORY: Atypical chest pain FINDINGS: An AP, portable, upright chest radiograph is compared to study dated 03/19/2018. The cardiomediastinal silhouette is unremarkable. The lungs and pleural spaces are clear. No pneumothorax is seen. The bony thorax is grossly intact. IMPRESSION: No active disease in the chest. ACT 112: Negative or not required by law. Electronically signed by: Ismael Aguirre M.D. 07/18/2021 8:11 AM Hospital Course (1) Chest pain: 51 yo female PMHx of HTN well controlled with Metoprolol, newly diagnosed atrial flutter on Eliquis presented with chest pain. #Typical chest pain -presented with sudden chest pressure, SOB overnight; improved with nitro in ED -ddx include ACS, anxiety, atrial flutter -Troponin neg x2 -normal lipid panel -A1C 6.3 -EKG with no ST segment abnormalities -Negative stress echo imaging -f/u pcp, #Atrial flutter -diagnosed at PCP clinic last week -EKG: sinus tachycardia in the 100s -Continue Metoprolol 75mg po daily -Continue Eliquis 5mg po BID -outpatient cardiology follow up #Hypertension -Chronic -Continue Metoprolol 75mg po daily -Continue to monitor BP -would consider outpatient sleep study for sleep apnea and potential need for CPAP #Sinusitis -Was recently started on Omnicef for sinusitis by pcp -Continue course - Omnicef 300mg po BID x 15 days as prescribed by PCP -Continue Fluticasone (2) Atrial flutter: (3) Hypertension: (4) Sinusitis: Total Time Total Time Spent Total Time Spent (In Minutes): 30 Discharge Plan Discharge Items Patient Disposition: Home - Self-Care Reason For Visit: CHEST PAIN Discharge Diagnosis: Typical chest pain Activity: Per Instructions section Non-emergency contact: Primary Care Provider and [employer] Up Operator Call non-emergency contact if: you have any medication questions, your symptoms worsen and your pain is concerning for you Follow-up/Referrals: Delgado Beavers MD [Physician] - Kwame Oliver Jr, DO [Primary Care Provider] - Diet: Regular Addtl Attending Provider Instructions: You were admitted to the hospital for a work-up of your chest pain from this morning. Your initial EKG and heart enzymes were normal other than a mildly elevated heart rate. Based on your symptoms and history it was reasonable to get a stress echo. The images from the stress echo were negative so it is unlikely you have acute coronary syndrome. You are stable for discharge and should follow-up with your director of blood as you were planned to for your recently new diagnosis of atrial flutter which you should continue your home metoprolol and Xarelto. I have also prescribed you some nitroglycerin to be used as needed for chest pain until your appointment with your director of blood who can adjust medication. Pending Studies at Discharge: Yes (official stress echo results) Stand-Alone Forms: My [facility] [employer], Smoking Cessation Medications and DC Order Prescriptions: New nitroglycerin 0.4 mg tablet, sublingual 0.4 mg sublingual .prn Qty: 14 RF: 0 Continued hydroxyzine HCl 25 mg tablet 25 mg PO HS PRN (Reason: Insomnia) RF: 0 levocetirizine 5 mg tablet 5 mg PO DAILY RF: 0 omeprazole 40 mg capsule,delayed release(DR/EC) 40 mg PO DAILY PRNRF: 0 Xarelto 20 mg tablet 15 mg PO BID RF: 0 topiramate [Topamax] 25 mg tablet 25 mg PO BID RF: 0 fluticasone propionate [Flonase Allergy Relief] 50 mcg/actuation spray,suspension 2 spray intranasal BID RF: 0 epinephrine [EpiPen] 0.3 mg/0.3 mL auto-injector 0.3 mg IM Q4H PRN (Reason: Allergic Reaction) RF: 0 metoprolol succinate 25 mg tablet extended release 24 hr 75 mg PO QAM RF: 0 norethindrone (contraceptive) 0.35 mg Tablet 0.35 mg PO DAILY RF: 0 Discharge Orders: Discharge Order (Routine); Ordered 07/18/21 Ordered By: Manuel Parsons/Other Patient Handouts: Prediabetes, 5 Steps for Eating Healthier Admission Data Admit Date/Time: 07/18/21 05:22 Attending Provider: Nichelle Skelton Admit Provider: Zari Birmingham Primary Care Provider: Kwame Oliver Jr Other Providers: Zari Birmingham Other Interventions: Discharge Summary Assessment (RN) Last Done: 07/18/21 17:39 Supervising Physician Co-Signing Physician Notes Resident Physician Supervision Note: I independently interviewed and examined the patient and verified the perez history and physical, reviewed labs and image studies and agree with resident Dr. Siri Markham findings and care plan. Resident Activity Tracking Resident Involvement: Resident Care Provided Care Provided: Adult Hospital Medicine
--- NOTE | 2021-07-18 21:56 | XCELERA ---
[id number] [id number]
--- NOTE | 2021-07-19 07:37 | Electrocardiogram Report ---
Test Reason : Blood Pressure : / mmHG Vent. Rate : 106 BPM Atrial Rate : 106 BPM P-R Int : 192 ms QRS Dur : 080 ms QT Int : 332 ms P-R-T Axes : 044 018 014 degrees QTc Int : 441 ms Sinus tachycardia Otherwise normal ECG When compared with ECG of 19-MAR-2018 22:10, No significant change was found Confirmed by Bob Coughlin ([id number]) on 07/19/2021 7:37:05 AM Referred By: REFERRED SELF Confirmed By:Bob Coughlin
== END 2021-07-18 18:39 | disposition home or self-care (01) ==
LOC: 2N 02:46 → ED 02:46 → SUATTDRO 05:22 → 2N 06:37

== ENCOUNTER 2022-01-29 09:34 | Observation (INO) ==
[2022-01-29] MEDS ORDERED: SODIUM CHLORIDE 0.9% 1000ML 1,000 ML IV ONE (10:14)
--- NOTE | 2022-01-29 10:27 | Emergency Department Note ---
Impression & Plan Epistaxis, Anemia, S/P nasal surgery ED Provider Note NAME: ANNAMARIA CASON AGE: 51 SEX: F : 1970 ARRIVES VIA: Walk-In INFORMANT: [Patient] ED PROVIDER(S): [Ismael Gutierrez MD] CHIEF COMPLAINT: Nosebleed HISTORY OF PRESENT ILLNESS: The patient is a 51-year-old female presents to the ER with complaints of nasal bleeding. The patient had a septoplasty with spur removal by Dr. Velasquez 3 weeks ago. Things were fine. Earlier this week, she bent over and had some nasal bleeding, it stopped really quickly though and she thought nothing more of it. Yesterday, at around 4 in the morning, she suddenly had nasal bleeding from the left-hand side. She went to the [facility] where they applied a clamp. She seemed to stop bleeding and she was discharged. The patient states that last evening she began bleeding again, left side more so than the right. The bleeding was quite significant and she had a lot of clotting in the back of her throat. She went to [facility] and they put some packing in each side of the nose. The patient states that this morning, she had bleeding despite the packing. She spoke with her ENT doctor's office and referred to our ER. The patient has been lightheaded and dizzy at times. She has no chest pain or shortness of breath. She has a lot of pressure in her nose from all the packing. She states that right now, she is not bleeding. REVIEW OF SYSTEMS: See HPI for pertinent positives and negatives. A total of ten systems were reviewed and were otherwise negative. PMHx/PSHx: See Below SOCIAL HISTORY: See Below. PHYSICAL EXAM: GENERAL: Patient is in no acute distress. HEENT: No acute trauma, normocephalic atraumatic, mucous membranes dry, no nasal congestion, no scleral icterus. There is a clot to the posterior pharynx, no active bleeding. She has nasal packing bilaterally with no active bleeding. NECK: No stridor, no adenopathy, no meningismus, trachea is midline. LUNGS: Clear to auscultation bilaterally, no wheeze, no rhonchi, breath sounds equal. HEART: Mildly tachycardic, regular rhythm, no murmurs. ABDOMEN: Soft, nontender, bowel sounds positive, no peritonitis. EXTREMITIES: No cyanosis or edema, full range of motion of all the joints without pain or difficulty, no signs for acute trauma. NEUROLOGIC: Oriented x 3, no acute motor or sensory deficits, no focal weakness. SKIN: No rash, no jaundice, no diaphoresis. DIFFERENTIAL DIAGNOSIS: Coagulopathy, anemia, arterial bleeding, venous bleeding, sinusitis, thrombocytopenia, among others EMERGENCY DEPARTMENT COURSE/PROCEDURES: MEDICAL DECISION MAKING: There is a mild leukocytosis, this could be consistent with infection or just the stress of her presentation. The patient is anemic with a hemoglobin of 10.5. This is a drop for her. There is a normal platelet count. No coagulopathy. No renal failure or significant electrolyte abnormality. On exam, the patient had packing in place to both the right and left nare. There was a clot to the back of the throat. No active bleeding. She was mildly tachycardic. The patient had not taken her blood pressure medication this morning. She had the med with her and she was told to take this with a sip of water. Patient received a 1 L saline bolus for hydration. I spoke with Dr. Velasquez of ENT. The patient will be seen here in the ED by ENT and likely go to the OR for removal of the packing and potential cautery. She has had persistent nasal bleeding now and this is her third ER visit. The patient is aware of the need to go to the operating room. She knows that she will be seen by ENT. She is currently resting comfortably. Past Med/Surg History Medical History Hypertension Kidney stone hx of Obesity Sleep apnea mild--had sleep study test performed 12/18/2021 @ [place]--no device ordered Tachycardia follows with Dr. Beavers--reason for metoprolol (current HR around 80-90s) Surgical History (Updated 01/29/22 @ 15:54 by Ismael Gutierrez MD) History of colonoscopy History of dilatation and curettage History of hysteroscopy History of lithotripsy with stent placement History of nasal septoplasty with bilateral turbinate reduction-01/08/22-Dr. Velasquez History of wisdom tooth extraction Status post ORIF of fracture of ankle right side--hardware in place Family History Father Hypertension Depression Suicide Mother Hypertension SVT (supraventricular tachycardia) Environmental allergies Grandmother (Maternal) Stroke Grandfather (Paternal) Heart disease Other No family history of adverse response to anesthesia No family history of bleeding disorder Social History Smoking Status: Never smoker Second Hand Exposure: No; Hx Alcohol Use: Yes Alcohol Intake Frequency Comment: Occasional/socially Hx Substance Use: No Preferred Language: Swiss Communication Ability: Effective Visual Impairment: No Limitations Hearing Ability: Normal Polisher Brass Required: No Beliefs That Will Affect Care: None marital status: marital status details: 2 Children Current Living Situation: Spouse Current Living Situation Comment: Home w/ spouse current occupational status: employed 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 [employer] Feels Safe at Home: Yes Assistive Devices: None Allergies Allergies Allergy/AdvReac Type Severity Reaction Status Date / Time Sulfa (Sulfonamide Allergy Intermediate RASH Verified 01/29/22 10:55 Antibiotics) Home Meds Home Medications Medication Instructions Recorded Confirmed epinephrine 0.3 mg/0.3 mL 0.3 mg IM Q4H PRN Allergic Reaction 07/15/21 01/29/22 injection, auto-injector (EpiPen) omeprazole 40 mg capsule,delayed 40 mg PO DAILY PRN Acid Reflux 07/15/21 01/29/22 release hydroxyzine pamoate 25 mg capsule 25 mg PO HS PRN Sleep 10/14/21 01/29/22 (Vistaril) levocetirizine 5 mg tablet (Xyzal) 5 mg PO DAILY PRN Allergy Symptoms 10/14/21 01/29/22 metoprolol tartrate 25 mg tablet 25 mg PO TID 10/14/21 01/29/22 norethindrone (contraceptive) 0.35 0.35 mg PO QAM 01/02/22 01/29/22 mg tablet Previous Rx's Medication Instructions Recorded tramadol 50 mg tablet 50 mg PO Q6H PRN pain #20 tabs 01/08/22 Results & Data (ED) Vital Signs Vital Signs - 24 hr 01/29/22 09:37 01/29/22 11:48 01/29/22 14:29 Temperature 36.8 C Temperature Source Temporal Artery Scan Pulse Rate 136 H Pulse Rate [Left Finger] 110 H 101 H Pulse Rhythm [Left Finger] Regular Regular Pulse Strength [Left Finger] Normal Normal Respiratory Rate 18 20 18 Respiratory Effort / Characteristics Non-Labored Spontaneous Non-Labored Spontaneous Respiratory Depth Normal Normal Respiratory Pattern Regular Regular Blood Pressure 135/75 Blood Pressure [Left Arm] 150/88 H 126/65 Blood Pressure Mean 95 Blood Pressure Mean [Left Arm] 108 85 Blood Pressure Position [Left Arm] Sitting Sitting Pulse Oximetry 98 97 98 Oxygen Delivery Method Room Air Room Air Room Air Sepsis Recent Fever Within 48 Hours No Sepsis New/Unexplained Change in Mental Status No Sepsis Action Taken by Nursing No Action Required Home Medications Current Medication List: was personally reviewed by me Laboratory Data Attestation: I reviewed the patient's lab results. Result diagrams: 01/29/22 10:20 01/29/22 10:20 Lab Results 01/29/22 01/29/22 01/29/22 Range/Units 10:20 10:20 10:20 WBC 13.46 H (4.8-10.8) K/ul RBC 3.48 L (3.93-5.22) M/uL Hgb 10.5 L (12.0-16.0) g/dl Hct 30.4 L (34.1-44.9) % MCV 87.4 (80.0-100.0) fL MCH 30.2 (25.0-34.0) pg MCHC 34.5 (32.0-36.0) g/dL RDW Std Deviation 40.9 (36.4-46.3) fL RDW Coeff of Soha 13.0 (11.5-14.5) % Plt Count 307 (130-400) K/uL MPV 8.9 L (9.4-12.3) fL PT Cancelled INR Cancelled APTT Cancelled PTT Ratio Cancelled Sodium 138 (136-145) mmol/L Potassium 3.8 (3.5-5.1) mmol/L Chloride 106 (98-107) mmol/L Carbon Dioxide 25 (21-32) mmol/L Anion Gap 7 (3-11) BUN 17 (6-23) mg/dl Creatinine 0.73 (0.6-1.2) mg/dl Est Cr Clr Drug Dosing 95.3 ml/min Est GFR ( Amer) 112.1 ml/min Est GFR (Non-Af Amer) 96.7 ml/min BUN/Creatinine Ratio 23.3 H (10-20) Glucose 139 H (70-99(Fasting)) mg/dl Calcium 8.4 L (8.5-10.1) mg/dl 01/29/22 Range/Units 11:00 WBC (4.8-10.8) K/ul RBC (3.93-5.22) M/uL Hgb (12.0-16.0) g/dl Hct (34.1-44.9) % MCV (80.0-100.0) fL MCH (25.0-34.0) pg MCHC (32.0-36.0) g/dL RDW Std Deviation (36.4-46.3) fL RDW Coeff of Soha (11.5-14.5) % Plt Count (130-400) K/uL MPV (9.4-12.3) fL PT 10.5 INR 1.0 APTT 24.9 PTT Ratio 0.9 Sodium (136-145) mmol/L Potassium (3.5-5.1) mmol/L Chloride (98-107) mmol/L Carbon Dioxide (21-32) mmol/L Anion Gap (3-11) BUN (6-23) mg/dl Creatinine (0.6-1.2) mg/dl Est Cr Clr Drug Dosing ml/min Est GFR ( Amer) ml/min Est GFR (Non-Af Amer) ml/min BUN/Creatinine Ratio (10-20) Glucose (70-99(Fasting)) mg/dl Calcium (8.5-10.1) mg/dl Administered Medications Discontinued Medications Sodium Chloride (Nss 1000ml) 1,000 mls @ 999 mls/hr IV .Q1H1M ONE Stop: 01/29/22 11:14 Last Infusion: 01/29/22 11:29 Dose: 0 mls/hr Documented By: Admin: 01/29/22 10:29 Dose: 999 mls/hr Documented By: NA Discharge Plan Visit Data Chief Complaint: Nose Bleed (Major) Stated Complaint: NON STOP NOSE BLEED ED Provider: Ismael Gutierrez Discharge Problem: Epistaxis, Anemia, S/P nasal surgery Patient Disposition: Still a Patient Condition: Good Forms Stand Alone Forms: My [employer] Prescriptions Prescriptions: No Action metoprolol tartrate 25 mg tablet 25 mg PO TID levocetirizine [Xyzal] 5 mg tablet 5 mg PO DAILY PRN (Reason: Allergy Symptoms) hydroxyzine pamoate [Vistaril] 25 mg capsule 25 mg PO HS PRN (Reason: Sleep) Rx Instructions: 1-2 AT BEDTIME NEEDED omeprazole 40 mg capsule,delayed release(DR/EC) 40 mg PO DAILY PRN (Reason: Acid Reflux) epinephrine [EpiPen] 0.3 mg/0.3 mL auto-injector 0.3 mg IM Q4H PRN (Reason: Allergic Reaction) norethindrone (contraceptive) 0.35 mg tablet 0.35 mg PO QAM tramadol 50 mg tablet 50 mg PO Q6H PRN (Reason: pain) Qty: 20 0RF Referrals Referrals: Dianne Carrasco MD [Primary Care Provider] -
[2022-01-29 10:38] LABS: Hematocrit (blood only) 30.4 % (34.1-44.9); Hemoglobin 10.5 g/dl (12.0-16.0); Mean Corpuscular Hemoglobin 30.2 pg (25.0-34.0); Mean Corpuscular Hgb Conc 34.5 g/dL (32.0-36.0); Mean Corpuscular Volume 87.4 fL (80.0-100.0); Mean Platelet Volume 8.9 fL (9.4-12.3); Platelet Count 307 K/uL (130-400); RDW Standard Deviation 40.9 fL (36.4-46.3); Red Blood Count 3.48 M/uL (3.93-5.22); White Blood Count 13.46 K/ul (4.8-10.8)
[2022-01-29 10:57] LABS: BUN Creatinine Ratio 23.3 (10-20); Calcium 8.4 mg/dl (8.5-10.1); Creatinine Clr Calc Pharmacy 95.3 ml/min; Est GFR (African American) 112.1 ml/min; Est GFR (Non-African American) 96.7 ml/min; Potassium 3.8 mmol/L (3.5-5.1)
[2022-01-29 11:31] LABS: Partial Thromboplastin Ratio 0.9; Partial Thromboplastin Time 24.9 Seconds (21.0-31.0); Prothrombin Time 10.5 Seconds (9.0-12.0)
--- NOTE | 2022-01-29 16:22 | History & Physical Report ---
Date of Service January 29, 2022 Assessment & Plan (1) Epistaxis: Plan: drop of 4 Gm. Hgb, will admit for observation, endo cautery in AM (2) History of nasal septoplasty: History of Present Illness Chief Complaint: epistaxis Primary Care Provider: Dianne Carrasco MD 51 yo sudden onset epistaxis, left side then right, last evening 4 pm. Packed at [place] [facility], still had bleeding, presented here Allergies Allergy/AdvReac Type Severity Reaction Status Date / Time Sulfa (Sulfonamide Allergy Intermediate RASH Verified 01/29/22 10:55 Antibiotics) Home Medications Medication Instructions Recorded Confirmed Type epinephrine 0.3 mg/0.3 mL 0.3 mg IM Q4H PRN Allergic Reaction 07/15/21 01/29/22 History injection, auto-injector (EpiPen) omeprazole 40 mg capsule,delayed 40 mg PO DAILY PRN Acid Reflux 07/15/21 01/29/22 History release hydroxyzine pamoate 25 mg capsule 25 mg PO HS PRN Sleep 10/14/21 01/29/22 History (Vistaril) levocetirizine 5 mg tablet (Xyzal) 5 mg PO DAILY PRN Allergy Symptoms 10/14/21 01/29/22 History metoprolol tartrate 25 mg tablet 25 mg PO TID 10/14/21 01/29/22 History norethindrone (contraceptive) 0.35 0.35 mg PO QAM 01/02/22 01/29/22 History mg tablet tramadol 50 mg tablet 50 mg PO Q6H PRN pain #20 tabs 01/08/22 01/29/22 Rx Past Med/Surg History Medical History Hypertension Kidney stone hx of Obesity Sleep apnea mild--had sleep study test performed 12/18/2021 @ [place]--no device ordered Tachycardia follows with Dr. Beavers--reason for metoprolol (current HR around 80-90s) Surgical History (Updated 01/29/22 @ 16:22 by Nat Velasquez MD) History of colonoscopy History of dilatation and curettage History of hysteroscopy History of lithotripsy with stent placement History of nasal septoplasty with bilateral turbinate reduction-01/08/22-Dr. Velasquez History of wisdom tooth extraction Status post ORIF of fracture of ankle right side--hardware in place Family History Father Hypertension Depression Suicide Mother Hypertension SVT (supraventricular tachycardia) Environmental allergies Grandmother (Maternal) Stroke Grandfather (Paternal) Heart disease Other No family history of adverse response to anesthesia No family history of bleeding disorder Social History Smoking Status: Never smoker Second Hand Exposure: No; Hx Alcohol Use: Yes Alcohol Intake Frequency Comment: Occasional/socially Hx Substance Use: No Preferred Language: Hungarian Communication Ability: Effective Visual Impairment: No Limitations Hearing Ability: Normal Nude Model Required: No Beliefs That Will Affect Care: None marital status: marital status details: 2 Children Current Living Situation: Spouse Current Living Situation Comment: Home w/ spouse current occupational status: employed 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 [employer] Feels Safe at Home: Yes Assistive Devices: None Physical Exam Constitutional: WD/WN, vitals as above Eyes: PERRL, conjunctivae normal, anicteric sclerae ENMT: external ear and nose normal, oropharynx normal Nose: + epistaxis (packing both nares, no active bleeding) Neck: trachea midline, no thyromegaly Respiratory: normal respiratory effort, lungs clear to auscultation Results & Data Results & Data ([facility]) Vital Signs (Past 12 Hours) Vital Signs Temp Pulse Pulse Resp BP BP Pulse Ox 01/29/22 14:29 101 H 18 126/65 98 01/29/22 11:48 110 H 20 150/88 H 97 01/29/22 09:37 36.8 C 136 H 18 135/75 98 O2 Del Method 01/29/22 14:29 Room Air 01/29/22 11:48 Room Air 01/29/22 09:37 Room Air PG Care Time/CCT Total # of Minutes Spent Total Time Spent with Patient: Total time spent is greater than 50% in coordination of care (as documented) at patient's floor/unit and/or counseling patient: Coding Level of Care Code None Diagnoses Epistaxis R04.0 History of nasal septoplasty Z98.890
[2022-01-29] MEDS ORDERED: MoRPHine SULFATE 4 MG/ML 1 ML CARP\\VIAL IV PRN (16:24)
[2022-01-29] MEDS ORDERED: MoRPHine SULFATE 2 MG/ML CARP IV PRN (16:24)
[2022-01-29] MEDS ORDERED: ONDANSETRON INJ 2 MG/ML 2 ML VIAL IV PRN (16:24)
[2022-01-29] MEDS ORDERED: ACETAMINOPHEN 500 MG TAB PO STA (17:18)
[2022-01-29] MEDS: D5W AND 1/2NSS + 20MEQ KCL 20 MEQ/1,000 ML BAG IV SCH (19:55)
[2022-01-29] MEDS: ACETAMINOPHEN/HYDROcodone ELIX 15 ML/CUP PO PRN (22:25)
[2022-01-30] MEDS: D5W AND 1/2NSS + 20MEQ KCL 20 MEQ/1,000 ML BAG IV SCH ×3 (01:56→14:55)
[2022-01-30] MEDS: ACETAMINOPHEN/HYDROcodone ELIX 15 ML/CUP PO PRN (05:52)
--- NOTE | 2022-01-30 06:58 | History & Physical Bridge Note ---
Date of Service January 30, 2022 History & Physical Bridge Note I have examined the patient, reviewed the History & Physical and in the interval since the performance of the History & Physical I have noted the following changes of clinical significance: no changes noted
[2022-01-30] MEDS: METOPROLOL TARTRATE 25 MG TAB PO SCH ×2 (09:42→13:28)
--- NOTE | 2022-01-30 15:51 | Anesthesiology Consultation ---
Date of Service January 30, 2022 Assessment & Plan (1) Encounter for pre-operative examination: Chart Review Chart Review: Acceptable Risk for Surgery History Surgery Operation Date: 01/30/22 08:20 Proposed Procedures p Endocautery Nasal Bleed Control - Nat Velasquez MD Height/Weight Height: 5 ft 2 in Weight: 86.8 kg Allergies Allergy/AdvReac Type Severity Reaction Status Date / Time Sulfa (Sulfonamide Allergy Intermediate RASH Verified 01/29/22 10:55 Antibiotics) Medications Home Medications Medication Instructions Recorded Confirmed Last Taken epinephrine 0.3 mg/0.3 mL 0.3 mg IM Q4H PRN Allergic Reaction 07/15/21 01/29/22 Unknown injection, auto-injector (EpiPen) omeprazole 40 mg capsule,delayed 40 mg PO DAILY PRN Acid Reflux 07/15/21 Unknown release hydroxyzine pamoate 25 mg capsule 25 mg PO HS PRN Sleep 10/14/21 01/29/22 Unknown (Vistaril) levocetirizine 5 mg tablet (Xyzal) 5 mg PO DAILY PRN Allergy Symptoms 10/14/21 01/29/22 Unknown metoprolol tartrate 25 mg tablet 25 mg PO TID 10/14/21 01/29/22 01/08/22 07:00 norethindrone (contraceptive) 0.35 0.35 mg PO QAM 01/02/22 01/29/22 01/08/22 07:00 mg tablet tramadol 50 mg tablet 50 mg PO Q6H PRN pain #20 tabs 01/08/22 01/29/22 Unknown Active Medications Generic Name Dose Route Start Last Admin Trade Name Freq PRN Reason Stop Dose Admin Hydrocodone Bitart/Acetaminophen 15 ml 01/29/22 16:24 01/30/22 05:52 Acetaminophen/Hydrocodone Elix 15 Ml/Cup PO 02/12/22 16:23 15 ml Q3H PRN Administration moderate pain (scale 4-6) Potassium Chloride/Dextrose/Sod Cl 20 meq in 1,000 mls @ 100 mls/hr 01/29/22 16:30 01/30/22 14:55 D5w And 1/2nss + 20meq Kcl IV 02/28/22 16:29 100 mls/hr .Q10H GEN Administration Metoprolol Tartrate 25 mg 01/30/22 09:00 01/30/22 13:28 Metoprolol Tartrate 25 Mg Tab PO 03/01/22 08:59 25 mg TID GEN Administration Miscellaneous 1 each 01/30/22 16:00 01/30/22 14:56 Norethindrone (Contraceptive) 0.35 Mg Tablet - Order Awaiting Action N/A 03/01/22 15:59 Not Given QS GEN Past Medical History Medical History Hypertension Kidney stone hx of Obesity Sleep apnea mild--had sleep study test performed 12/18/2021 @ [place]--no device ordered Tachycardia follows with Dr. Beavers--reason for metoprolol (current HR around 80-90s) Past Family History Family History Father Hypertension Depression Suicide Mother Hypertension SVT (supraventricular tachycardia) Environmental allergies Grandmother (Maternal) Stroke Grandfather (Paternal) Heart disease Other No family history of adverse response to anesthesia No family history of bleeding disorder Past Surgical History Surgical History History of colonoscopy History of dilatation and curettage History of hysteroscopy History of lithotripsy with stent placement History of nasal septoplasty with bilateral turbinate reduction-01/08/22-Dr. Velasquez History of wisdom tooth extraction Status post ORIF of fracture of ankle right side--hardware in place Social History Smoking Status: Never smoker Hx Alcohol Use: Yes alcohol intake frequency: holidays/special occasions only Hx Substance Use: No substance use type: does not use Physical Exam Vital Signs Last Vital Signs Temp 36.3 C L 01/30/22 07:35 Pulse 85 01/30/22 13:29 Resp 20 01/30/22 07:35 BP 132/74 01/30/22 07:35 Pulse Ox 97 01/30/22 07:35 O2 Del Method 01/30/22 07:35 Testing Laboratory Results 01/29/22 10:20 01/29/22 10:20 PT 10.5 Seconds (9.0-12.0) 01/29/22 11:00 INR 1.0 (0.9-1.1) 01/29/22 11:00 APTT 24.9 Seconds (21.0-31.0) 01/29/22 11:00 Electrocardiogram Date: 07/18/21 Findings: + ST @ (106) Echocardiogram Date: 04/06/18 LV Function: normal Valvular Disease: + no significant valvular disease
[2022-01-30] MEDS ORDERED: LIDOCAINE 4% INH SOLN 4 ML BTL ONE ×2 (16:39→16:41)
[2022-01-30] MEDS ORDERED: LIDOCAINE 2% MPF LOCAL 5 ML VIAL INFIL ONE (16:51)
[2022-01-30] MEDS ORDERED: PROPOFOL IV EMULSION 10 MG/ML 20 ML VIAL IV ONE (16:51)
[2022-01-30] MEDS ORDERED: fentaNYL citrate 100 MCG/2 ML VIAL ONE (16:52)
[2022-01-30] MEDS ORDERED: MIDAZOLAM HCL 1 MG/ML 2ML VIAL ONE (16:52)
[2022-01-30] MEDS ORDERED: GELATIN SPONGE SZ 100 ONE (17:22)
[2022-01-30] MEDS ORDERED: FLOSEAL HEMOSTATIC MATRIX 10ML TOP ONE (17:25)
[2022-01-30] MEDS ORDERED: ePHEDrine sulfate 50 MG/ML AMP IV PRN (17:30)
[2022-01-30] MEDS ORDERED: MEPERIDINE HCL 25 MG/ML CARP/VIAL IV PRN (17:30)
[2022-01-30] MEDS ORDERED: LABETALOL HCL IV 5 MG/ML 20ML IV PRN (17:30)
[2022-01-30] MEDS ORDERED: PHENYLEPHRINE 100MCG/ML 5ML SYR IV PRN (17:30)
[2022-01-30] MEDS ORDERED: fentaNYL citrate 100 MCG/2 ML VIAL IV PRN (17:30)
[2022-01-30] MEDS ORDERED: ATROPINE SULFATE 0.1 MG/ML 10ML SYR IV PRN (17:30)
[2022-01-30] MEDS ORDERED: ONDANSETRON INJ 2 MG/ML 2 ML VIAL IV PRN (17:30)
[2022-01-30] MEDS ORDERED: HYDROmorphone INJ 1 MG/ML SYRINGE IV PRN (17:30)
--- NOTE | 2022-01-30 18:02 | Operative Report ---
PG Post Operative Report Pre & Post Diagnosis Operation Date: 01/30/22 08:20 Pre-Op Diagnosis: Epistaxis Post-Op Diagnosis: Epistaxis I identified the patient and participated in the time-out.: Yes Procedure Operation Date: 01/30/22 08:20 Actual Procedures p Endocautery Nasal Bleed Control with packing(Not Applicable) - Nat Velasquez MD Surgeon Nat Velasquez MD Enrobing Machine Operator None Estimated Blood Loss 10 Findings Consistent with Post-Op Diagnosis Bleeding site appears to be at site of old plain gut suture hole. Cauterized using suction cautery. Specimens None Anesthesia Type General Complications None Description of Procedure She was brought to the operating room, properly identified, prepped and draped in the usual sterile manner after general anesthesia using LMA. Nose was decongested using topical cottonoids with a solution of 4 cc of 4% Xylocaine mixed with Afrin. Injection was not used. 0 degree endoscope with video monitoring was used to visualize both nares. There was an old suture on the left side which was removed. Bleeding appears to be at the old suture hole which was cauterized using the suction cautery. Another bleeding site along the left inferior turbinate was identified posteriorly and was cauterized using the suction cautery. At this point posterior packing was started with 2 strips of Gelfoam posteriorly to block the posterior choana. The middle portion of the nares on the left side was then filled with Floseal, approximately 7 cc. Anteriorly another piece of Gelfoam was placed to hold the Floseal in place. Right side was visualized. No bleeding was noted on the right side. She tolerated procedure well was taken recovery area in satisfactory condition. I attest to the content of the Intraoperative Record and any orders documented therein. Any exceptions are noted below.
--- NOTE | 2022-01-30 18:15 | Anesthesiology Progress Note ---
Date of Service January 30, 2022 Anesthesia Post Procedure Vital Signs Vital Signs: Temp Pulse Pulse Pulse Resp BP Pulse Ox 01/30/22 18:05 99 H 19 128/75 98 01/30/22 17:56 36.7 C 108 H 15 135/76 100 01/30/22 17:23 37.2 C 96 H 18 143/90 H 99 01/30/22 16:58 37 C 01/30/22 16:43 38 C H 111 H 22 146/66 H 100 01/30/22 13:29 85 01/30/22 10:30 87 01/30/22 07:35 36.3 C L 103 H 20 132/74 97 01/30/22 02:44 36.7 C 90 16 125/75 100 01/29/22 20:59 36.8 C 94 H 16 108/71 95 01/29/22 18:33 O2 Del Method 01/30/22 18:05 Room Air 01/30/22 17:56 Room Air 01/30/22 17:23 Room Air 01/30/22 16:58 01/30/22 16:43 Room Air 01/30/22 13:29 01/30/22 10:30 01/30/22 07:35 Room Air 01/30/22 02:44 Room Air 01/29/22 20:59 Room Air 01/29/22 18:33 Room Air Pain Intensity Bilateral Head: Pain Intensity: 2 Transfer of Care Handoff Completed per policy Notes Mental Status: alert / awake / arousable Patient Amnestic to Procedure: Yes Nausea / Vomiting: adequately controlled Pain: adequately controlled Airway Patency, RR, SpO2: stable & adequate BP & HR: stable & adequate Hydration State: stable & adequate Anesthetic Complications: no major complications apparent and Pt Satisfied with anesthetic care
--- NOTE | 2022-01-30 19:01 | Discharge Summary ---
Date of Service January 30, 2022 Admission HPI Per Admitting Provider 51 yo sudden onset epistaxis, left side then right, last evening 4 pm. Packed at [facility], still had bleeding, presented here Admission Exam (Per Admitting) Constitutional WD/WN, vitals as above Eyes PERRL, conjunctivae normal, anicteric sclerae ENMT external ear and nose normal, oropharynx normal Nose: + epistaxis (packing both nares, no active bleeding) Neck trachea midline, no thyromegaly Respiratory normal respiratory effort, lungs clear to auscultation Discharge Data Consultations 01/29/22 10:21 Consult Otolaryngology (Head and Neck) Stat Procedures Performed Operation Date: 01/30/22 08:20 Actual Procedures p Endocautery Nasal Bleed Control with packing(Not Applicable) - Nat Velasquez MD Hospital Course (1) Epistaxis: Acute onset of epistaxis, packed with [facility], still have bleeding and presented to the ER here yesterday, admitted for endoscopic cautery today. Some oozing of blood no definitive active bleeding site on endoscopy. I cauterized septum at old suture site and also left inferior turbinate posteriorly. I then packed with Gelfoam posteriorly and 7 cc of Floseal in the mid nasal cavity with another piece of Gelfoam anteriorly on the left side. The right side and no sign of bleeding. She cannot sleep. Desires to go home. Discussed with the patient and her . Will discharge to home with Floseal in place. Breathe through right side. Use saline and Afrin if needed on the right side. Do not blow left nostril. Instructed. (2) History of nasal septoplasty: Septum appears straight. Old suture removed left side, suture site cauterized. (3) Anemia: Hemoglobin down to 10. Instructed to supplement with iron containing foods and or iron pills. (4) S/P nasal surgery: She underwent endoscopic cauterization today. No active bleeding site noted. Some oozing left septum and left inferior turbinate cauterized. Packed with Gelfoam and Floseal. For recheck and follow-up in my office in 10 days.
== END 2022-01-30 19:38 | disposition home or self-care (01) ==
LOC: ED 09:34 → 3N 16:24 → INTOOBSV 16:24 → 3N 17:52